=== PATIENT | male | born 1945 | race Caucasian/White ===

== ENCOUNTER 2019-06-02 16:50 | Inpatient (IN) | payer MEDICARE, MEDICAID, SELFPAY ==
--- NOTE | ~2019-06-02 | XR_ITS ---
EXAMINATION: XR chest 2V DATE: 06/02/2019 17:56 INDICATION: Weakness. Cerebral vascular accident. TECHNIQUE: Frontal and lateral views of the chest were obtained on 3 radiographs. COMPARISON: None. FINDINGS: There is mild atelectasis in the lower lung zones. No pleural effusion or pneumothorax. Car diomegaly is noted. There is mild chronic anterior wedging of a midthoracic vertebral body. There is an old healed fracture of left clavicle. IMPRESSION: 1. Mild atelectasis in the lower lung zones. 2. Cardiomegaly. Reviewed, dictated and finalized at location A.
--- NOTE | ~2019-06-02 | US_ITS ---
EXAMINATION: US carotid duplex BI DATE: 06/03/2019 15:12 INDICATION: Carotid stenosis. Problems with speech. Facial weakness. TECHNIQUE: Grayscale, color Doppler, and pulsed Doppler images of the cervical carotid arteries were obtained. The degree of vessel stenosis is placed in one of the following categories: normal, <50%, 5 0-69%, >=70% but less than near-occlusion, near-occlusion, or total occlusion. Note that percent sten osis relative to normal distal artery lumen diameter is indirectly measured from velocity measurement s as described by Ortiz, et al. Radiology 2003; 229:340-346. Notes: Normal: Peak systolic velocity <125 centimeters/sec and no plaque <50%. Peak systolic velocity <125 ( EDV <40; ICA/CCA PSV ratio <2.0; used these factors only a tandem lesions or low cardiac output or co ntralateral disease) 50-69 %: PSV 125-230 (EDV 40-100; ratio 2-4) >= 70% but less than near occlusion: PSV greater than 230 (EDV > 100; ratio> 4.0) Near Occlusion: PSV that is variable; markedly narrowed lumen Occlusion: Absent flow on color/spectral Doppler and no lumen on richardson scale. COMPARISON: None. FINDINGS: RIGHT: The right common carotid artery (CCA) peak systolic velocity (PSV) is 40 cm/s. The right internal car otid artery (ICA) PSV is 139 cm/s. The right ICA end-diastolic velocity (EDV) is 35 cm/s. The right I CA/CCA PSV ratio is 3.4. The external carotid artery (ECA) PSV is 54 cm/s. There is antegrade flow in the right vertebral artery. LEFT: The left CCA PSV is 59 cm/s. The left ICA PSV is 124 cm/s. The left ICA EDV is 20 cm/s. The left ICA/ CCA PSV ratio is 2.1. The ECA PSV is 142 cm/s. There is antegrade flow in the left vertebral artery. IMPRESSION: 1. 50-69% stenosis in the right internal carotid artery by sonographic criteria. 2. Less than 50% stenosis in the left internal carotid artery by sonographic criteria. Reviewed, dictated and finalized at location A. IMPRESSION: 1. 50-69% stenosis in the right internal carotid artery by sonographic criteria . 2. Less than 50% stenosis in the left internal carotid artery by sonographic cr iteria.
--- NOTE | ~2019-06-02 | CT_ITS ---
EXAMINATION: CT brain wo con DATE: 06/02/2019 17:03 INDICATION: Slurred speech. Cerebrovascular accident. TECHNIQUE: Computed tomography (CT) of the head was performed without intravenous contrast. The mA wa s adjusted according to patient size. Iterative reconstruction technique was employed. The dose-lengt h product was 605.33 mGy-cm. COMPARISON: None FINDINGS: There is old infarct involving the right internal capsule. There is an old infarct in the r ight temporal occipital region in the expected distribution of right posterior cerebral artery. There is no intracranial hemorrhage, acute infarction, or abnormal intracranial mass lesion. The ventricle s are normal in size. There is mild mucosal thickening in the paranasal sinuses. There are bilateral mastoid effusions. The orbits are normal. IMPRESSION: 1. Old infarcts involving the right internal capsule and right temporal occipital region. I called th is result to Dr. Cat on 06/02/19 at 17:06. Reviewed, dictated and finalized at location A. IMPRESSION: 1. Old infarcts involving the right internal capsule and right temporal occipit al region. I called this result to Dr. Cat on 06/02/19 at 17:06.
--- NOTE | ~2019-06-02 | US_ITS ---
EXAMINATION: US soft tissue LE LT DATE: 06/04/2019 12:36 INDICATION: Subcutaneous mass TECHNIQUE: Multiple grayscale and Doppler ultrasound images of the region of concern at the lateral l eft thigh were obtained. COMPARISON: None FINDINGS: The palpable abnormality of concern corresponds to a 2.7 x 1.7 x 1.1 cm heterogeneously hypoechoic cy stic lesion with relatively well-defined thin peripheral wall hypoechoic cystic lesion centered in th e subcutaneous fat with posterior acoustic enhancement. No evident internal flow on color Doppler. Th ere is a subtle hypoechoic tract extending from the lesion to the skin surface which favors an epider moid cyst. IMPRESSION: 1. 2.7 x 1.7 x 1.1 cm subcutaneous complex cystic lesion most likely representing an epidermoid cyst with differential including hematoma or abscess in the appropriate clinical settings. Reviewed, dictated and finalized at location A. IMPRESSION: 1. 2.7 x 1.7 x 1.1 cm subcutaneous complex cystic lesion most likely representi ng an epidermoid cyst with differential including hematoma or abscess in the ap propriate clinical settings.
--- NOTE | ~2019-06-02 | MR_ITS ---
EXAMINATION: MR brain/brain stem wo con DATE: 06/04/2019 14:54 INDICATION: Speech deficit. Left hemiparesis. TECHNIQUE: Magnetic resonance imaging (MRI) of the brain and brainstem was performed without intraven ous contrast. Sequences included sagittal and axial T1-weighted FSE, axial diffusion-weighted FS EPI, axial T2*-weighted GRE, axial T2-weighted FLAIR Propeller, and axial T2-weighted Propeller. Apparent diffusion coefficient (ADC) maps were created. COMPARISON: Head CT 06/02/2019 FINDINGS: There is an acute infarct predominantly involving the right temporal parietal region with a djacent cortical involvement of the right occipital lobe. There are small acute infarcts involving th e right insula and right frontoparietal region. There is an old infarct involving the right temporal occipital region expected distribution of right posterior cerebral artery. There is an old infarct in volving the right internal capsule. There are scattered areas of nonspecific increased T2-weighted si gnal intensity in the cerebral white matter, which is within normal limits for the patient's age. The re is no intracranial hemorrhage or abnormal mass lesion. The ventricles are normal in size. There is mild mucosal thickening in the ethmoid sinuses. There are bilateral mastoid effusions. The orbits ar e normal. IMPRESSION: 1. Acute infarcts involving the right temporal parietal occipital region, right insula, and right fro ntoparietal region in the expected distribution of right middle cerebral artery. 2. Old infarcts involving the right internal capsule and right temporal occipital region. Reviewed, dictated and finalized at location A. IMPRESSION: 1. Acute infarcts involving the right temporal parietal occipital region, right insula, and right frontoparietal region in the expected distribution of right middle cerebral artery. 2. Old infarcts involving the right internal capsule and right temporal occipit al region.
[2019-06-02 17:04] VITALS: O2SAT 97
--- NOTE | 2019-06-02 17:05 | ECG_ITS ---
Measurements Intervals Welch Rate: 85 P: IL: 0 QRS: 33 QRSD: 101 T: 28 QT: 361 QTc: 432 Interpretive Statements ATRIAL FIBRILLATION LOW QRS VOLTAGE IN LIMB LEADS BORDERLINE ST ABNORMALITY- ANTEROLAT/INF LEADS BASELINE ARTIFACT- I, II, III, AVR, AVL, AVF ABNORMAL ECG Electronically Signed On 06-04-2019 15:27:19 CDT by Alex Jose D.O.
--- NOTE | 2019-06-02 17:12 | ED.NEUROSD ---
HPI - Neuro Symptoms/Deficit General Chief Complaint: Suspected CVA Stated Complaint: ?CVA Time Seen by Provider: 06/02/19 17:12 Source: RN notes reviewed Mode of arrival: EMS Limitations: clinical condition History of Present Illness HPI Narrative: Pt is a 73 y/o male who presents to the ED, via EMS, from [facility], secondary to a possible CVA. Per nurse, pt was brought to the ED d/t pt having slurred speech and lt sided weakness. EMS states that the [facility] staff noted his slurred speech and lt sided weakness around 1600 and by the time EMS got there his Sx had resolved. Per CT findings, pt has a H/O of a previous CVA. There is no one that can verify pt's baseline condition. A complete HPI is limited d/t pt being a poor historian. Onset (ago): hour(s) (1) Last Observed Normal: 16:00 Timing confirmed by: caregiver Location: speech, left arm and left leg Quality: weak Associated symptoms: denies other symptoms Related Data Home Medications Medication Instructions Recorded Confirmed Adult Low Dose Aspirin 81 mg PO 06/02/19 atorvastatin 20 mg PO 06/02/19 calcium carbonate 200 mg PO 06/02/19 clopidogrel 75 mg PO 06/02/19 digoxin 125 mcg PO DAILY 06/02/19 06/02/19 diltiazem HCl PO 06/02/19 haloperidol 06/02/19 hydrocodone-acetaminophen 5 - 325 mg 06/02/19 melatonin 3 mg 06/02/19 nicotine 1 patch TRANSDERMAL DAILY 06/02/19 06/02/19 pantoprazole 40 mg 06/02/19 thiamine HCl (vitamin B1) [Vitamin 100 mg PO DAILY 06/02/19 06/02/19 B-1] trazodone 50 mg 06/02/19 Allergies Allergy/AdvReac Type Severity Reaction Status Date / Time erythromycin base Allergy Unknown Verified 06/02/19 17:42 Review of Systems Review of Systems: ROS unobtainable: other (Unobtainable d/t pt being a poor historian) PMFSH Past Medical History Medical History (Updated 06/02/19 @ 19:12 by Harry Cat MD) CVA (cerebral vascular accident) Social History Social History (Updated 06/02/19 @ 17:38 by Brady Lynn) Living arrangements: long term Comments A complete PMFSH is limited due to the lack of records and pt never being in this hospital in the past. Exam Const: General: no acute distress, well developed and ill appearing chronically Nutritional Appearance: well nourished Orientation/consciousness: patient oriented x3 (alert) and Other orientation findings (Alert) Limitations: no limitations HENMT: Head: normocephalic and atraumatic Ears: external ears normal General nose exam: No nasal discharge present and no epistaxis Face and sinus: face symmetric Mouth: Yes lip normal, Yes tongue normal and Yes moist mucous membranes Throat: other (No exudate, no erythema) Eyes: Visual Wooten: abnormal by confrontation (questionable lt sided visual field defect/neglect) Conjunctivae: conjunctivae normal Sclera: sclerae normal Pupils: Equal, round and reactive pupils present EOM: EOMs intact bilaterally Neck: Neck: full ROM, no lymphadenopathy and supple Thyroid: thyroid normal Chest: Chest palpation & inspection: no tenderness Resp: Effort & Inspection: normal respiratory effort Auscultation: clear to auscultation bilaterally, no rales, no rhonchi, no wheezes and other (breath sounds equal) Cardio: Rate: regular rate Rhythm: regular rhythm Heart sounds: no gallops and no murmurs GI: Inspection: non-distended GI Palp: No abdominal tenderness and Yes Soft to palpation Auscultation: other (bowel sounds present) : General: Yes no CVA tenderness Back/Spine/Pelvis: Back: no CVA tenderness Thoracic/Lumbar Spine: thoracic and lumbar spine normal to inspection Skin: General skin exam: normal color and no rashes or lesions noted Neuro: General: patient oriented x3 (alert), moves all extremities and no focal motor deficits Cranial nerves: Yes facial symmetry Speech: normal speech Motor exam (neuro): Pronator motor function not present, Motor abnormalities not present and Other motor observations present (question
[2019-06-02 17:26] VITALS: BP 147/69; PULSE 71; RESP 16; TEMP 37.1; O2SAT 100
[2019-06-02 17:33] LABS: Glucose Point of Care 108 (65-105)
[2019-06-02 18:35] LABS: Basophils Absolute Auto 0.1 K/mm3 (0.0-0.1); Basophils Percent Auto 1.2 % (0.2-1.2); Eosinophils Absolute Auto 0.3 K/mm3 (0-0.3); Eosinophils Percent Auto 2.5 % (0-4.4); Hematocrit 37.2 % (42.0-52.0); Hemoglobin 10.5 g/dL (14.0-18.0); Immature Granulocyte Absolute 0.06 K/mm3 (0.00-0.031); Immature Granulocyte Percent A 0.6 % (0-0.5); Lymphocytes Absolute Auto 1.52 K/mm3 (0.9-3.2); Lymphocytes Percent Auto 14.6 % (18.3-44.2); Mean Corpuscular HGB Conc 28.2 g/dl (32-36); Mean Corpuscular Hemoglobin 22.9 pg (26-34); Monocytes Absolute Auto 1.5 K/mm3 (0.1-0.6); Monocytes Percent Auto 14.2 % (2.6-8.5); Neutrophils Percent Auto 66.9 % (45.5-73.1); Platelet Count Result 350 k/mm3 (150-375); Red Blood Count 4.59 M/mm3 (4.6-6.20); Red Cell Distribution Width 19.7 % (11.5-14.5); White Blood Count 10.4 K/mm3 (4.5-10.0)
[2019-06-02 18:37] LABS: Add Urine Microscopic? NO; Appearance Urine Clear (Clear); Bilirubin Urine Negative (Negative); Blood Urine Negative (Negative); Color Urine Straw (Yellow); Glucose Urine UA Negative (Negative); Ketones Urine Negative (Negative); Leukocyte Esterase Ur Negative LEU/UL (Negative); Nitrate Urine Negative (Negative); Protein Urine Negative (Negative); Urobilinogen Urine Negative mg/dL (<2.0)
[2019-06-02 18:42] LABS: Prothrombin Time 12.4 Seconds (11.1-14.7)
[2019-06-02 18:44] LABS: Blood Urea Nitrogen 11 mg/dL (9-20); Calcium 8.8 mg/dL (8.4-10.2); Carbon Dioxide 29 mmol/L (22-30); Chloride 102 mmol/L (98-107); Estimated CRCL calculation 77 ml/min; Estimated Glomerular Filt Rate > 60; Glucose 97 mg/dL (75-110); Potassium 4.3 mmol/L (3.4-5.0); Sodium 135 mmol/L (137-145)
[2019-06-02 19:17] VITALS: BP 134/86; PULSE 74; RESP 20; O2SAT 98
[2019-06-02 20:45] VITALS: BP 142/88; PULSE 79; RESP 16; O2SAT 99
[2019-06-02 20:55] VITALS: BP 155/85; PULSE 85; RESP 18; TEMP 36.5; O2SAT 100; BMI 25.5
[2019-06-02] MEDS: LACTATED RINGERS 1,000 ML 80 ML IV CONT (20:55)
--- NOTE | 2019-06-02 20:56 | ADMGEN ---
This patient, Zackary Domínguez, was admitted to [facility] Surg Room 306-01. Patient/family oriented to hospital policies and general routines including ID bracelet, bed and alarms, visiting hours, pain management, procedures, bathroom and other care routines, personal items, smoking policy, room service/diet, and visiting hours. Valuables list has been completed. Information on how to activate the Rapid Response Team has been discussed. Patient/Family are encouraged to report perceived risks to care and to ask questions if they do not understand what they are told or what they should do.
[2019-06-02 21:10] VITALS: PULSE 82
--- NOTE | 2019-06-02 21:30 | PM.IMHP ---
H&P: HPI History of Present Illness Chief complaint: Slurred speech and left-sided weakness. Narrative: Zackary Domínguez is a 73-year-old male smoker with history of alcoholism, atrial fibrillation, hypertension, and hyperlipidemia who presented to the emergency department earlier this evening via EMS from [facility] for evaluation of slurred speech and left-sided weakness. The patient is a fairly good historian, but at times seems to have difficulties getting out the words that he is trying to articulate. As such, his daughter provided some additional history, with the patient's permission. The patient lives in his own home, and apparently has been having recurrent falls over the past several months. More recently, he fell and broke his left hand and was seen at [facility]. He was subsequently transferred to [facility], for reasons unclear to the patient. Apparently there was concern that he may have had a stroke, however daughter and patient were both told that he did not have a stroke. He is on clopidogrel, however, for unknown reasons in brain CT done today showed old infarcts. He was sent to [facility] for rehab, and today staff noticed that his speech seems slurred and that his left side was weak. The patient himself did not think his left side was weak, but has noticed the slurred speech. Due to unclear history as to what transpired at [facility], he is being admitted for observation and possible further evaluation. Patient does note that he has been experiencing vertigo the last couple of months, leading to his falls. He denies auditory and visual changes. He has not noticed any focal weakness. No paresthesias. He is chronically in atrial fibrillation, but is not on long-term anticoagulation, presumably due to him being a fall risk. Review of Systems Review of Systems: Narrative: Twelve systems were reviewed with pertinent positives and negatives as per HPI. No fever, chills, or sweats. He denies recent cold and flu symptoms. No exertional chest pain or shortness of breath. Denies nausea, vomiting, and diarrhea. No dysphagia. he has a history of DTs with prior hospitalizations, but did fine during his most recent hospitalization at [facility]. No tremors, sweats, or hallucinations. Patient states he has cut back on drinking in the last several months. No history of DVT. Except as documented, all other systems were reviewed and are negative. [facility] Past Medical History Medical History (Updated 06/02/19 @ 23:01 by Estela Hawthorne PA-C) Atrial fibrillation COPD (chronic obstructive pulmonary disease) CVA (cerebral vascular accident) Old infarcts involving the right internal capsule and right temporal occipital region, noted on brain CT 06/02/2019. History of alcohol abuse History of colon polyps Hypertension Peripheral arterial disease Tobacco dependence Surgical History Surgical History (Updated 06/02/19 @ 22:47 by Estela Hawthorne PA-C) History of appendectomy History of sinus surgery History of vascular surgery Bilateral lower extremity popliteal bypass. Family History Family History (Updated 06/02/19 @ 22:47 by Estela Hawthorne PA-C) Father , of old age. No problems noted. Mother Acute myocardial infarction from [place] in early 50s. Sibling Carcinoma of colon Social History Social History (Updated 06/02/19 @ 22:49 by Estela Hawthorne PA-C) Social History: The patient lives in his own home in [place]. 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 He designates his son Jose as his surrogate decision maker. He is listed as a full code. He has smoked at least 1 pack of cigarettes per day for the past 50 years. He has drank a 6 pack of beer daily since his 30s, but has cut back to 1 to 2 beers a day. Smoking packs per day: 1 Smoking cigarettes per day: 20.0 Years smoked: 50 Smoking pack-years: 50.00 Additional smoking assessment comme
[2019-06-03] VITALS (10 sets, daily range): BP systolic 125–143; BP diastolic 57–92; PULSE 74–102; RESP 16–18; TEMP 36.6–37.1; O2SAT 100
--- NOTE | 2019-06-03 | ECHO_ITS ---
Patient Info Name: Zackary Domínguez Age: 73 years : 1945 Gender: Male Ht: 72 in Wt: 188 lbs BSA: 2.09 m2 HR: 82 bpm BP: 125 / 62 mmHg Heart Rhythm: Atrial Fibrillation Technical Quality: Good Exam Date: 06/03/2019 3:35 PM Exam Location: [facility] Patient Status: Inpatient Admit Date: 06/02/2019 Staff Ordering Physician: Ramya Ngo PA-C [employer] Specialist: Jeff Hewitt RDCS Attending Provider: Ramya Ngo PA-C Referring Physician: Huber STARR; Exam Type: CA echo doppler color flow Study Info Indications 436.0 - CVA Complete two-dimensional, color flow and Doppler transthoracic echocardiogram is performed. Strain analysis performed. History/Risk Factors CVA; Afib, COPD, EtOH, HTN. Summary 1. Left ventricular chamber dimension is mildly enlarged. 2. Left ventricular systolic function is mildly reduced, estimated at 40-45%. 3. The posterior wall is akinetic. 4. Left atrial chamber dimension is moderately enlarged. 5. Small amounts of Mitral, Aortic and Tricuspid regurgitation. Left Ventricle Left ventricular chamber dimension is mildly enlarged. Left ventricular systolic function is mildly reduced, estimated at 40-45%. The posterior wall is akinetic. Right Ventricle Right ventricular chamber dimension is normal. Left Atria Left atrial chamber dimension is moderately enlarged. Right Atria Right atrial chamber dimension is normal. Aortic Valve The aortic valve is trileaflet. There is mild aortic valve sclerosis. There is trace aortic valve regurgitation. Pulmonic Valve The pulmonic valve is not well visualized. Mitral Valve The mitral valve has normal leaflets and calcified annulus. There is mild mitral valve regurgitation. Tricuspid Valve The tricuspid valve leaflets are normal. There is trace tricuspid valve regurgitation. Pericardium/Pleural The pericardium appears normal. Aorta The aortic root size at the sinus of Valsalva is normal. Left Ventricular Outflow Tract Name Value Normal LVOT 2D LVOT Diameter 2.2 cm LVOT Doppler LVOT Peak Gradient 7 mmHg LVOT Mean Gradient 4 mmHg LVOT VTI 22 cm LVOT VTI/AV VTI Ratio 0.8 LVOT Stroke Volume 84 ml LVOT CO 6.8 l/min LVOT CI 3.2 l/min/m2 Mitral Valve Name Value Normal MV Doppler MV Decel Kendall 749 cm/s2 MV PHT 36 ms MV Area (PHT) 6.2 cm2 4.0-5.0 MV Diastolic Function MV E Peak Velocity 92 cm/s MV A Peak Veloc
[2019-06-03] MEDS: MELATONIN 3 MG TABLET PO ×2 (00:17→20:32)
[2019-06-03] MEDS: TRAZODONE HCL 50 MG TABLET PO ×2 (00:17→20:32)
[2019-06-03] MEDS: ATORVASTATIN 20 MG TABLET PO ×2 (00:17→20:32)
[2019-06-03 06:13] LABS: Hematocrit 35.2 % (42.0-52.0); Hemoglobin 10.1 g/dL (14.0-18.0); Mean Corpuscular HGB Conc 28.7 g/dl (32-36); Mean Corpuscular Volume 80.2 fl (80-100); Mean Platelet Volume 9.4 fl (7.4-10.4); Platelet Count Result 332 k/mm3 (150-375); Red Blood Count 4.39 M/mm3 (4.6-6.20); Red Cell Distribution Width 19.5 % (11.5-14.5); White Blood Count 8.1 K/mm3 (4.5-10.0)
[2019-06-03 06:39] LABS: Alanine Aminotransferase 13 U/L (4-50); Albumin Level 3.6 g/dL (3.5-5.1); Alkaline Phosphatase 71 U/L (38-126); Aspartate Amino Transferase 19 U/L (17-59); Bilirubin,Total 0.3 mg/dL (0.2-1.3); Blood Urea Nitrogen 12 mg/dL (9-20); Calcium 8.7 mg/dL (8.4-10.2); Carbon Dioxide 27 mmol/L (22-30); Chloride 105 mmol/L (98-107); Estimated CRCL calculation 69 ml/min; Estimated Glomerular Filt Rate > 60; Glucose 91 mg/dL (75-110); Magnesium 2.1 mg/dL (1.6-2.3); Phosphorus 4.8 mg/dL (2.5-4.5); Potassium 4.2 mmol/L (3.4-5.0); Sodium 138 mmol/L (137-145)
[2019-06-03 06:44] LABS: Digoxin 0.7 ng/mL (0.8-2.0)
--- NOTE | 2019-06-03 08:02 | PCOTNOTE ---
Patient adamantly refusing therapy this AM. stating that he will not participate telling therapist to get out of his room
[2019-06-03] MEDS: ASPIRIN 81 MG CHEWABLE TABLET PO (08:27)
[2019-06-03] MEDS: CLOPIDOGREL BISULFATE 75 MG TABLET PO (08:27)
[2019-06-03] MEDS: DIGOXIN TAB 125 MCG TABLET PO (08:28)
[2019-06-03] MEDS: THIAMINE HCL 100 MG TABLET PO (08:28)
[2019-06-03] MEDS: PANTOPRAZOLE 40 MG TABLET PO (08:28)
[2019-06-03 09:51] LABS: Folic Acid 14.8 ng/mL (2.76->20)
[2019-06-03] MEDS: LACTATED RINGERS 1,000 ML 80 ML IV CONT (11:54)
--- NOTE | 2019-06-03 12:01 | CONS_ITS ---
DATE OF CONSULTATION: 06/03/[address] Héctor Killian. HISTORY OF PRESENT ILLNESS: This 73-year-old right-handed male has been admitted to [facility] through the emergency room for the complaint of left-sided weakness with slurred speech. In addition to the history of: 1. Alcoholism. 2. Smoking. 3. Atrial fibrillation. 4. Hypertension. 5. Hyperlipidemia. He presented to the ER via EMS from [facility] for the complaints as mentioned above. Initially, he appeared to have some difficulties in getting out the words when he was examined by the initial physician. He has been experiencing recurrent falls over the last several months, most recently fell and broke his left hand, was seen at [facility] and was subsequently transferred to [facility] for unclear reason. There was a concern regarding the possibility of new stroke, though it was ruled out. He has been on clopidogrel and his recent CT scan today revealed a stroke. His speech was somewhat slurred. He was weaker on the left side. He was admitted for further evaluation and observation. MEDICAL HISTORY: In the past, he has ongoing history of: 1. Atrial fibrillation. 2. COPD. 3. CVA. 4. Alcohol abuse. 5. Colon polyps. 6. Hypertension. 7. Peripheral arterial disease. 8. Tobacco dependence. SURGICAL HISTORY: He has history of appendectomy, sinus surgery, and vascular surgery. SOCIAL HISTORY: He carries the full code status. He smokes 1 pack of cigarettes per day for the last 50 years, drinking 6 pack of beer daily in his 30s, but now cutting back to 1-2 beers a day. MEDICATIONS: At the time of admission to the hospital, he was takin. Aspirin 81 mg daily. 2. Atorvastatin 20 mg h.s. 3. Calcium carbonate 200 mg q.i.d. 4. Clopidogrel 75 mg daily. 5. Digoxin 125 mcg daily. 6. Diltiazem 120 mg daily. 7. Melatonin 3 mg h.s. 8. Pantoprazole 40 mg daily. 9. Thiamine 100 mg daily. 10. Trazodone 50 mg at night. ALLERGIES: HE IS REPORTEDLY ALLERGIC TO ERYTHROMYCIN. PHYSICAL EXAMINATION: VITAL SIGNS: Evaluation up until now revealed him to be afebrile, normotensive with pulse ox of 100. GENERAL: Examination revealed him to be awake, alert, cooperative, in no obvious acute distress. HEENT: Head is normocephalic with no cranial bruits. Ears, nose, throat examination normal. NECK: Supple with no cervical bruits. No thyromegaly. No lymphadenopathy. HEART: Irregular. LUNGS: Clear to auscultation with no crepitation. SKIN: Normal. EXTREMITIES: Normal. NEUROLOGICAL: Examination revealed him to be awake, alert, and oriented x4. Pupils are round, regular. Wooten of vision full. Extraocular movements full. Face symmetrical. Tongue midline. Motor examination revealed him to have some difficulties performing [id number]-muil-[id number]-finger. Reflexes were symmetrical, plantars were downgoing and there was no evidence of gross cerebellar deficit. LABORATORY DATA: Evaluation up until now documented a normal CBC, normal basic metabolic panel, normal UA. CT scan of his head documented old infarct in the right internal capsule, right temporal occipital region with mild atelectasis in the left lower lung zone on x-ray of chest. The patient has been started on aspirin, atorvastatin, clopidogrel, digoxin, diltiazem, melatonin, and pantoprazole in addition to thiamine and trazodone. Treatment will be continued as such. Further adjustment will be made accordingly. ERIC MOYA M.D. COMPUTER PATTERNMAKER COMPUTER PATTERNMAKER D I MT: Lila
--- NOTE | 2019-06-03 13:07 | PCSTNOTE ---
Two attempts to see patient this date for bedside swallow eval. At approximately 0945 patient refused oral trials and argued with this therapist as to why testing was necessary. He then requested to use the urinal. Second attempt at 1300, at which time patient was gone for testing.
--- NOTE | 2019-06-03 16:14 | PM.IMPN ---
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 Records from [facility] were reviewed and the pt had a CT brain wo contrast there which revealed old infarcts without further workup performed. The pt does continue to exhibit difficulty finding words at times. He has no focal deficits appreciated on physical exam today. Dr. Frederick has been consulted. Recommendations are greatly appreciated. Will obtain carotid doppler US and echo Continue neurologic checks Q4HR MRI pending Continue aspirin, plavix, and atorvastatin (2) Atrial fibrillation: Code(s): I48.91 - Unspecified atrial fibrillation Status: Acute Assessment and Plan: Continue digoxin and cardizem Not on long-term anticoagulation at this time. Per Lalita, the patient's daughter, the pt has a hx of anemia requiring 2-3 units PRBC at [place] 3.5-4 weeks ago. Will request records. He had an EGD for evaluation of the etiology of his blood loss but did not have a colonoscopy yet due to his recent fall. The patient's family is unsure if he was ever on anticoagulation. Hx is unclear with my discussion with the pt. I will call to discuss this with his PCP. (3) Hypertension: Code(s): I10 - Essential (primary) hypertension Status: Acute Assessment and Plan: Blood pressures were reviewed and are stable. Continue cardizem and monitor daily (4) Tobacco dependence: Code(s): F17.200 - Nicotine dependence, unspecified, uncomplicated Status: Acute Assessment and Plan: Patient declines need for nicotine patch Discussed the importance of smoking cessation with the pt at length today (5) History of alcohol abuse: Code(s): F10.11 - Alcohol abuse, in remission Status: Acute Assessment and Plan: The pt reports that he has decreased his alcohol intake over the past two months. He has not consumed any alcohol since his recent hospitalization and since he was discharged to [facility]. He has a hx of DTs during a hospital stay 2-3 years ago but reports that he has not had any withdrawal symptoms recently and did not have any withdrawal sx at his recent stay at [facility]. Continue thiamine supplementation (6) Peripheral arterial disease: Code(s): I73.9 - Peripheral vascular disease, unspecified Status: Acute Assessment and Plan: Pt's daughter, Lalita, reports that the pt has a hx of PAD s/p stenting approximately 2 years ago. (7) Hematoma: Code(s): T14.8XXA - Other injury of unspecified body region, initial encounter Status: Acute Assessment and Plan: Pt has subcutaneous mass to left lateral thigh. It is tender to palpation. Will obtain LLE soft-tissue US for further evaluation. Subjective Date/time seen: 06/03/19 14:30 Interval history: Mr. Domínguez was seen and examined at bedside. He has no concerns today. He reports mild discomfort at his left thigh. He slept fine and is tolerating his diet well. He denies lateralizing weakness today. He denies fever, chills, cough, SOB, and chest pain. Review of Systems Review of Systems: All systems reviewed & are unremarkable except as noted in HPI and below Exam Narrative: Exam Narrative: General: Well-developed and well-nourished 73 y.o. male lying in bed. He is cooperative and in no acute distress. HEENT: Normocephalic and atraumatic. Conjunctivae and lids normal. PERRL. EOMI. Mucous membranes moist. Posterior pharynx without erythema or exudate. Neck: Supple. No lymphadenopathy or masses. Cardiac: Irregularly irregular rhythm. Rate normal. S1 and S2 normal. No murmur appreciated. No JVD. No carotid bruits. Lungs: Normal
[2019-06-04] VITALS (10 sets, daily range): BP systolic 100–115; BP diastolic 55–73; PULSE 60–95; RESP 16–18; TEMP 36.3–36.9; O2SAT 98–100
[2019-06-04 06:19] LABS: Hematocrit 34.4 % (42.0-52.0); Mean Corpuscular HGB Conc 29.1 g/dl (32-36); Mean Corpuscular Hemoglobin 23.2 pg (26-34); Mean Corpuscular Volume 79.8 fl (80-100); Mean Platelet Volume 9.4 fl (7.4-10.4); Platelet Count Result 336 k/mm3 (150-375); Red Blood Count 4.31 M/mm3 (4.6-6.20); Red Cell Distribution Width 19.4 % (11.5-14.5)
[2019-06-04 06:33] LABS: Alanine Aminotransferase 13 U/L (4-50); Albumin Level 3.5 g/dL (3.5-5.1); Alkaline Phosphatase 75 U/L (38-126); Aspartate Amino Transferase 18 U/L (17-59); Bilirubin,Total 0.3 mg/dL (0.2-1.3); Blood Urea Nitrogen 10 mg/dL (9-20); Calcium 8.8 mg/dL (8.4-10.2); Carbon Dioxide 27 mmol/L (22-30); Chloride 103 mmol/L (98-107); Estimated CRCL calculation 88 ml/min; Estimated Glomerular Filt Rate > 60; Glucose 98 mg/dL (75-110); Phosphorus 4.4 mg/dL (2.5-4.5); Potassium 4.2 mmol/L (3.4-5.0); Sodium 134 mmol/L (137-145)
[2019-06-04] MEDS: THIAMINE HCL 100 MG TABLET PO (09:10)
[2019-06-04] MEDS: DIGOXIN TAB 125 MCG TABLET PO (09:10)
[2019-06-04] MEDS: CLOPIDOGREL BISULFATE 75 MG TABLET PO (09:10)
[2019-06-04] MEDS: PANTOPRAZOLE 40 MG TABLET PO (09:10)
[2019-06-04] MEDS: ASPIRIN 81 MG CHEWABLE TABLET PO (09:11)
--- NOTE | 2019-06-04 09:36 | PCSTNOTE ---
Please refer to the Bedside Swallow Evaluation in the EMR.
--- NOTE | 2019-06-04 10:16 | WPDNEUROPN ---
Progress Note: A&P Assessment and Plan (1) Hematoma: Code(s): T14.8XXA - Other injury of unspecified body region, initial encounter Status: Acute (2) Peripheral arterial disease: Code(s): I73.9 - Peripheral vascular disease, unspecified Status: Acute (3) Hypertension: Code(s): I10 - Essential (primary) hypertension Status: Acute (4) Atrial fibrillation: Code(s): I48.91 - Unspecified atrial fibrillation Status: Acute (5) Neurological symptoms: Code(s): R29.90 - Unspecified symptoms and signs involving the nervous system Status: Acute (6) History of alcohol abuse: Code(s): F10.11 - Alcohol abuse, in remission Status: Acute (7) Tobacco dependence: Code(s): F17.200 - Nicotine dependence, unspecified, uncomplicated Status: Acute (8) Weakness: Code(s): R53.1 - Weakness Status: Acute (9) Cerebrovascular accident, old: Code(s): Z86.73 - Personal history of transient ischemic attack (TIA), and cerebral infarction without residual deficits Status: Acute Additional Plan stable Review of Systems Review of Systems: All systems reviewed & are unremarkable except as noted in HPI and below Exam Const: General: cooperative and no acute distress Nutritional Appearance: average body habitus Orientation/consciousness: oriented to person and oriented to place Eyes: General: appearance normal, both eyes and all related structures Neck: Neck: full ROM and no lymphadenopathy Resp: Effort & Inspection: able to speak in complete sentences Cardio: Rhythm: abnormal rhythm GI: Auscultation: normal bowel sounds Skin: General skin exam: no rashes or lesions noted Neuro: General: oriented to person and oriented to place Cranial nerves: Yes Equal, round and reactive pupils present, Yes Nystagmus not present, Yes Midline tongue present, Yes Symmetric palate elevation present and Yes Ability to bilaterally rotate head present Cognition (Neuro): normal cognition Speech: normal speech Gait exam (Neuro): Unable to assess gait Motor exam (neuro): 5/5 motor strength present throughout (left sided subtle weekness) Psych: Speech and movement: Normal speech and movement present Affect: normal affect Attitude: cooperative Thought content: Yes Normal thought content present Insight: Fair insight present (Psych) Judgement: Fair judgement present (Psych) Objective Data Vital Signs Vital Signs: Vital Signs - 24 hr 06/03/19 12:00 06/03/19 14:26 06/03/19 16:00 Temperature 37.0 C Pulse Rate 97 79 85 Respiratory Rate 16 Blood Pressure 125/62 Pulse Oximetry 100 06/03/19 20:00 06/03/19 21:26 06/04/19 00:00 Temperature 37.1 C Pulse Rate 90 75 88 Respiratory Rate 16 Blood Pressure 125/57 L Pulse Oximetry 100 06/04/19 04:00 06/04/19 06:00 06/04/19 09:10 Temperature 36.3 C L Pulse Rate 60 95 95 Respiratory Rate 16 Blood Pressure 114/73 Pulse Oximetry 98 Intake/Output Intake/Output: Intake & Output 06/01/19 06/02/19 06/03/19 06/04/19 23:59 23:59 23:59 23:59 Intake Total 3641 940 Output Total 2050 1500 Balance 1591 -560 Meds/Results Medications: Active Medications Generic Name Dose Route Start Last Admin Trade Name Freq PRN Reason Stop Dose Admin Hydrocodone Bitart/Acetaminophen 1 tab 06/02/19 23:09 06/03/19 00:18 [place] 5-325 Mg PO 1 tab Q4H PRN Administration Pain rated 4-6 Hydrocodone Bitart/Acetaminophen 2 tab 06/03/19 00:56 06/04/19 09:06 [place] 5-325 Mg PO 2 tab Q4H PRN Administration Pain Rated 7-10 Aspirin 81 mg 06/03/19 08:00 06/04/19 09:11 Aspirin Chewable PO 81 mg DAILY@0800 MERRITT Administration Atorvastatin Calcium 20 mg 06/02/19 23:15 06/03/19 20:32 Lipitor PO 20 mg HS MERRITT Administration Calcium Carbonate 200 mg 06/02/19 23:09 Tums PO QID PRN Heartburn Clopidogrel Bisulfate 75 mg 03
--- NOTE | 2019-06-04 11:35 | PCOTNOTE ---
Attempted to see Patient for OT treatment session. Patient refusing to participate in any activities at this time. Patient being asked to having some testing performed, refusing, stating he just wants to go back to the shelter. Patient doesn't understand why he is still here. Patients doctor was present trying to explain the importance of the services here at the hospital, patient very argumentative. Patient wants to leave today.
--- NOTE | 2019-06-04 13:44 | PM.IMPN ---
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 Records from [facility] were reviewed and the pt had a CT brain wo contrast there which revealed old infarcts without further workup performed. The pt continues to have intermittent expressive aphasia and some difficulty pronouncing certain words. Carotid doppler with <50% stenosis in the left ICA and 50-69% stenosis in the right ICA. Echo with reduced systolic function of 40-45%. We received echo results today from [facility] and his EF was unchanged from that study several weeks ago. Dr. Frederick has been consulted. Recommendations are greatly appreciated. Discussed with Dr. Frederick and we will continue ASA, plavix, and atorvastatin. Pt has refused CTA head and neck because he does not want contrast exposure. He has no know contrast allergy but reports that contrast caused severe pain in the past. I discussed this with his children who do not know of a specific allergy but are in agreement to respect his wishes and avoid CTA head and neck. Continue neurologic checks Q4HR The MRI is still pending because we needed to obtain information about his peripheral stents. We have obtained this info form [facility] so we can now proceed. Continue aspirin, plavix, and atorvastatin Will place consult for speech therapy. Recommend speech therapy at discharge. Pt will need to continue PT/OT at discharge. (2) Atrial fibrillation: Code(s): I48.91 - Unspecified atrial fibrillation Status: Acute Assessment and Plan: Telemetry reviewed. Rate is generally well-controlled with occasional episodes of tachycardia (110-120s). He is in persistent atrial fibrillation. He was on digoxin and cardizem prior to admission. His echo reveals reduced EF of 40-45%. Will consult cardiology to discuss management of his atrial fibrillation. Recommendations are greatly appreciated. The pt is not on long-term anticoagulation. I called to speak with Dr. Wharton, his PCP, who stated that he was on xarelto in 2013 but has not been on an anticoagulant since 2013. He was on ASA and plavix until 04/29 when he was found to have profound anemia with Hb 6.9. He required 2-3 units PRBC. He underwent EGD but has not had his colonoscopy yet. He is adamantly refusing colonoscopy. He denies melena or hematochezia but I talked with Dr. Wharton who suspects that his anemia was due to GI blood loss. After transfusion, he experienced a fall 3/ and was hospitalized at an outside facility. I believe ASA and plavix were resumed at that time due to concern for possible TIA/CVA. He also has a known hx of alcohol use but has been abstinent since he has been in the prison. His HAS-BLED score is 6. His [id number] risk is 6. I had a long discussion with his daughter, Lalita, and Son, Ramos. I discussed that he is at risk for recurrent strokes with his atrial fibrillation but he is also at high risk for bleeding. I discussed that he is on plavix and ASA at this time and his Hb & Hct seem to be relatively stable. They may consider anticoagulation in the future but I would recommend he have the colonoscopy first. He needs to have his CBC repeated and monitor H&H to ensure it will remain stable on plavix and ASA. (3) Hypertension: Code(s): I10 - Essential (primary) hypertension Status: Acute Assessment and Plan: Blood pressures were reviewed and are stable. Continue cardizem and monitor daily Will await cardiology recommendations regarding cardizem (4) Tobacco dependence: Code(s): F17.200 - Nicotine dependence, unspecified, uncomplicated Status: Acute Assessment and Plan: Patient declines need
--- NOTE | 2019-06-04 15:18 | PCPTNOTE ---
Patient refused treatment.
[2019-06-04] MEDS: TRAZODONE HCL 50 MG TABLET PO (20:18)
[2019-06-04] MEDS: MELATONIN 3 MG TABLET PO (20:18)
[2019-06-04] MEDS: ATORVASTATIN 20 MG TABLET PO (20:18)
[2019-06-05] VITALS (10 sets, daily range): BP systolic 116–148; BP diastolic 56–83; PULSE 73–98; RESP 18–20; TEMP 36.8–37.4; O2SAT 96–98
[2019-06-05 05:59] LABS: Hematocrit 35.9 % (42.0-52.0); Hemoglobin 10.1 g/dL (14.0-18.0); Mean Corpuscular HGB Conc 28.1 g/dl (32-36); Mean Corpuscular Hemoglobin 22.7 pg (26-34); Mean Corpuscular Volume 80.9 fl (80-100); Mean Platelet Volume 9.7 fl (7.4-10.4); Platelet Count Result 363 k/mm3 (150-375); Red Blood Count 4.44 M/mm3 (4.6-6.20); Red Cell Distribution Width 19.4 % (11.5-14.5)
[2019-06-05 06:05] LABS: Blood Urea Nitrogen 12 mg/dL (9-20); Calcium 8.4 mg/dL (8.4-10.2); Carbon Dioxide 26 mmol/L (22-30); Chloride 102 mmol/L (98-107); Estimated CRCL calculation 88 ml/min; Estimated Glomerular Filt Rate > 60; Glucose 100 mg/dL (75-110); Potassium 3.9 mmol/L (3.4-5.0); Sodium 134 mmol/L (137-145)
--- NOTE | 2019-06-05 07:10 | PCOTNOTE ---
Attempted to see Patient at this time. Patient refused to participate, I want to leave, go back to the alf, I'll do therapy there .
[2019-06-05 08:04] LABS: Cholesterol 124 mg/dL (0-200); HDL Direct 24 mg/dL; Triglycerides 100 mg/dL (<150)
[2019-06-05 08:15] LABS: LDL Cholesterol Direct 76 mg/dL
[2019-06-05] MEDS: DIGOXIN TAB 125 MCG TABLET PO (08:24)
[2019-06-05] MEDS: CLOPIDOGREL BISULFATE 75 MG TABLET PO (08:25)
[2019-06-05] MEDS: ASPIRIN 81 MG CHEWABLE TABLET PO (08:26)
[2019-06-05] MEDS: THIAMINE HCL 100 MG TABLET PO (08:26)
[2019-06-05] MEDS: PANTOPRAZOLE 40 MG TABLET PO (08:26)
--- NOTE | 2019-06-05 10:15 | WPDNEUROPN ---
Progress Note: A&P Assessment and Plan (1) Hematoma: Code(s): T14.8XXA - Other injury of unspecified body region, initial encounter Status: Acute (2) Peripheral arterial disease: Code(s): I73.9 - Peripheral vascular disease, unspecified Status: Acute (3) Hypertension: Code(s): I10 - Essential (primary) hypertension Status: Acute (4) Atrial fibrillation: Code(s): I48.91 - Unspecified atrial fibrillation Status: Acute (5) Neurological symptoms: Code(s): R29.90 - Unspecified symptoms and signs involving the nervous system Status: Acute (6) History of alcohol abuse: Code(s): F10.11 - Alcohol abuse, in remission Status: Acute (7) Tobacco dependence: Code(s): F17.200 - Nicotine dependence, unspecified, uncomplicated Status: Acute (8) Weakness: Code(s): R53.1 - Weakness Status: Acute Additional Plan stable on no anti coagulationbut dual anti platelet therapy Review of Systems Constitutional: Constitutional: Reports no additional constitutional complaints Exam Const: General: no acute distress Nutritional Appearance: average body habitus Eyes: General: appearance normal, both eyes and all related structures Alignment and Position: alignment normal Periorbital: periorbital findings normal Eyelids: eyelids normal Conjunctivae: conjunctivae normal Sclera: sclerae normal Cornea: corneas normal Pupils: Equal, round and reactive pupils present Direct Ophthalmoscopy: normal light reflex Neck: Neck: full ROM and no lymphadenopathy Resp: Effort & Inspection: normal respiratory effort Cardio: Rhythm: regular rhythm GI: Auscultation: normal bowel sounds Neuro: General: moves all extremities and no meningeal signs Cranial nerves: Yes Equal, round and reactive pupils present, Yes Nystagmus not present and Yes Ability to bilaterally elevate shoulders present Cognition (Neuro): abnormal cognition Speech: Abnormal speech present Gait exam (Neuro): Unable to assess gait Sensory Exam: Sensory deficit (Neuro) Objective Data Vital Signs Vital Signs: Vital Signs - 24 hr 06/04/19 12:00 06/04/19 14:00 06/04/19 20:00 Temperature 36.6 C Pulse Rate 89 83 65 Respiratory Rate 16 Blood Pressure 114/71 Pulse Oximetry 100 06/04/19 21:29 06/04/19 23:35 06/05/19 00:00 Temperature 36.9 C Pulse Rate 84 73 Respiratory Rate 18 Blood Pressure 100/55 L 115/67 Pulse Oximetry 100 06/05/19 04:00 06/05/19 05:44 06/05/19 08:24 Temperature 36.8 C Pulse Rate 80 84 84 Respiratory Rate 18 Blood Pressure 148/83 H Pulse Oximetry 98 Intake/Output Intake/Output: Intake & Output 06/02/19 06/03/19 06/04/19 06/05/19 23:59 23:59 23:59 23:59 Intake Total 3641 2130 520 Output Total 2050 1950 1050 Balance 1591 180 -530 Meds/Results Medications: Active Medications Generic Name Dose Route Start Last Admin Trade Name Freq PRN Reason Stop Dose Admin Hydrocodone Bitart/Acetaminophen 1 tab 06/02/19 23:09 06/03/19 00:18 [place] 5-325 Mg PO 1 tab Q4H PRN Administration Pain rated 4-6 Hydrocodone Bitart/Acetaminophen 2 tab 06/03/19 00:56 06/05/19 04:19 [place] 5-325 Mg PO 2 tab Q4H PRN Administration Pain Rated 7-10 Aspirin 81 mg 06/03/19 08:00 06/05/19 08:26 Aspirin Chewable PO 81 mg DAILY@0800 MERRITT Administration Atorvastatin Calcium 20 mg 06/02/19 23:15 06/04/19 20:18 Lipitor PO 20 mg HS MERRITT Administration Calcium Carbonate 200 mg 06/02/19 23:09 Tums PO QID PRN Heartburn Clopidogrel Bisulfate 75 mg 06/03/19 09:00 06/05/19 08:25 Plavix PO 75 mg DAILY MERRITT Administration Digoxin 125 mcg 06/03/19 09:00 06/05/19 08:24 Lanoxin Tab PO 125 mcg DAILY MERRITT Administration Diltiazem HCl 120 mg 06/03/19 09:00 06/05/19 08:24 Cardizem Cd PO 120 mg QAM MERRITT Administration Melatonin 3 mg 06/02/19 23:15 0
--- NOTE | 2019-06-05 11:00 | PCPTNOTE ---
The PT treatment was unable to be completed today due to patient refusal. Will continue per Plan of Care frequency and duration.
--- NOTE | 2019-06-05 11:25 | PM.CNCAR ---
Assessment and Plan Assessment and plan (1) Permanent atrial fibrillation: Code(s): I48.21 - Permanent atrial fibrillation Status: Acute Assessment and Plan: Longstanding atrial fibrillation currently with rapid ventricular response, asymptomatic. Heart rate control strategy. Patient has declined Xarelto or other systemic anticoagulation. Given history of GI bleed in the past requiring blood transfusion he was not deemed an anticoagulation candidate. Furthermore. Patient declines to reconsider in this regard. He declined colonoscopy in the past for to further clarify bleeding risk. Given recent falls patient remains a poor candidate for systemic anticoagulation despite unfortunate acute cerebrovascular accident likely secondary to his atrial fibrillation. Well from a stroke risk reduction perspective systemic anticoagulation would be strongly advised. However, patient at high risk for bleeding complications and patient has explicitly stated he does not agree to take anticoagulations but specifically indicated he was okay with clopidogrel and aspirin. Dual antiplatelet therapy is an inadequate regimen for significant stroke risk reduction in this circumstance, but as he is not a reasonable A/C candidate given recurrent fall risk and occult GI bleed history requiring tranfusions options quite limited. Other options as an outpatient to consider may be Watchman device at [facility] but given patient's history of noncompliance he may not be a good candidate in this regard. Increase diltiazem to 240 mg today (as he already had Diltiazem 120mg this AM). However, prefer beta-coral therapy Metoprolol 50mg TID (depending upon HR control) starting in AM for heart rate control particularly given EF 40-45% by echocardiogram with goal to avoid calcium channel blockers in the setting. Will up titrate as tolerated. Depending upon HR control would prefer to stop Digoxin as well. Heart rate control strategy primary management goal at this time. Continue aspirin and clopidogrel as tolerated. Monitor for bleeding. CHADS2 Vasc score 6, HAS BLED score 6. (2) Cardiomyopathy: Code(s): I42.9 - Cardiomyopathy, unspecified Status: Acute Assessment and Plan: compensated without evidence of CHF at this time. EF 40-45%. Cannot exclude underlying CAD. No anginal symptoms. Ischemic evaluation may be considered in the future, however, will continue medical therapy. Additional considerations include tachycardia induced cardiomyopathy related to atrial fibrillation, alcohol abuse, underlying CAD and/or other non-ischemic etiologies. (3) Acute CVA (cerebrovascular accident): Code(s): I63.9 - Cerebral infarction, unspecified Status: Acute Assessment and Plan: Acute cerebrovascular accident with evidence of old infarctions. Etiology very likely secondary to atrial fibrillation. Avoid additional antiarrhythmic therapy to minimize risk for chemical cardioversion which may further increase risk for acute embolic stroke. Systemic anticoagulation in general would be strongly advised, however, given frequent falls and GI bleed history patient is not a good candidate. Current confusion likely exacerbated by acute CVA. Patient very complicated, high risk for bleeding and/or recurrent embolic stroke complications. Statin therapy strongly advised given acute and chronic CVA. Continue Atorvastatin. (4) Hypertension: Code(s): I10 - Essential (primary) hypertension Status: Acute Assessment and Plan: Stable, avoid hypotension and excessive hypertension in setting of acute CVA. Appreciate Neurology involvement and recommendations. (5) History of alcohol abuse: Code(s): F10.11 - Alcohol abuse, in remission Status: Acute Assessment and Plan: Apparently abstinent of late. Abstinence from ETOH strongly advised. (6) Falls: Code(s): W19.XXXA - Unspecified fall, initial encounter Status:
--- NOTE | 2019-06-05 13:01 | PM.IMPN ---
Progress Note: A&P Assessment and Plan (1) Acute CVA (cerebrovascular accident): Code(s): I63.9 - Cerebral infarction, unspecified Status: Acute Assessment and Plan: Pt had CT brain wo contrast in the ED which revealed old infarcts of the right internal capsule and right temporal occipital region. MRI was completed yesterday and reveals acute infarcts in the right temporal parietal occipital region, right insula, and right frontoparietal region. He continues to have intermittent expressive aphasia, confusion with certain distant memory although he is able to recall other details, and some difficulty pronouncing certain words. Carotid doppler with <50% stenosis in the left ICA and 50-69% stenosis in the right ICA. Dr. Frederick has been consulted. Recommendations are greatly appreciated. Discussed with Dr. Frederick and we will continue ASA, plavix, and atorvastatin. Pt has refused CTA head and neck because he does not want contrast exposure. He has no know contrast allergy but reports that contrast caused severe pain in the past. I discussed this with his children who do not know of a specific allergy but are in agreement to respect his wishes and avoid CTA head and neck. Continue neurologic checks Q4HR Pt was evaluated by speech therapy and no further evaluation was recommended Pt will need to continue PT/OT at discharge. (2) Permanent atrial fibrillation: Code(s): I48.21 - Permanent atrial fibrillation Status: Acute Assessment and Plan: Telemetry reviewed from 06/04. Pt had atrial fibrillation with RVR this AM. He remains asymptomatic. His heart rate improved after he received his digoxin and cardizem. Dr. Gary with cardiology was consulted. Recommendations are greatly appreciated. Cardizem will be titrated to 240mg QD and will be titrated as tolerated. Metoprolol was also added. The pt is not on long-term anticoagulation. I called to speak with Dr. Wharton, his PCP, who stated that he was on xarelto in 2013 but has not been on an anticoagulant since 2013. He was on ASA and plavix until 04/29 when he was found to have profound anemia with Hb 6.9. He required 2-3 units PRBC. He underwent EGD but has not had his colonoscopy yet. He is adamantly refusing colonoscopy. He denies melena or hematochezia but I talked with Dr. Wharton who suspects that his anemia was due to GI blood loss. After transfusion, he experienced a fall 3/6 and was hospitalized at an outside facility. I believe ASA and plavix were resumed at that time due to concern for possible TIA/CVA. He also has a known hx of alcohol use but has been abstinent since he has been in the custodial. His HAS-BLED score is 6. His [id number] score is 6. I had a long discussion with his daughter, Lalita, and Son, Ramos. I discussed that he is at risk for recurrent strokes with his atrial fibrillation but he is also at high risk for bleeding. I discussed that he is on plavix and ASA at this time and his Hb & Hct seem to be relatively stable. Appreciate continued cardiology input. (3) Hypertension: Code(s): I10 - Essential (primary) hypertension Status: Acute Assessment and Plan: Blood pressures were reviewed and are stable. Continue cardizem which will be increased to 240mg per cardiology Appreciate continued input from cardiology and neurology (4) Tobacco dependence: Code(s): F17.200 - Nicotine dependence, unspecified, uncomplicated Status: Acute Assessment and Plan: Patient declines need for nicotine patch Discussed the importance of smoking cessation with the pt at length (5) History of alcohol abuse: Code(s): F10.11 - Alcohol abuse, in remission Status: Acute Assessment and Plan: Continue thiamine supplementation (6) Peripheral arterial disease: Code(s): I73.9 - Peripheral vascular disease, unspecified Status: Acute Assessment and Plan:
[2019-06-05] MEDS: DOCUSATE SODIUM 100 MG CAPSULE PO (20:57)
[2019-06-05] MEDS: MELATONIN 3 MG TABLET PO (20:57)
[2019-06-05] MEDS: TRAZODONE HCL 50 MG TABLET PO (20:58)
[2019-06-05] MEDS: ATORVASTATIN 20 MG TABLET PO (20:58)
[2019-06-06] VITALS (9 sets, daily range): BP systolic 106–148; BP diastolic 54–81; PULSE 65–87; RESP 16–18; TEMP 36.7–36.9; O2SAT 97
[2019-06-06 06:17] LABS: Hematocrit 35.7 % (42.0-52.0); Hemoglobin 10.1 g/dL (14.0-18.0); Mean Corpuscular HGB Conc 28.3 g/dl (32-36); Mean Corpuscular Volume 81.1 fl (80-100); Mean Platelet Volume 9.6 fl (7.4-10.4); Platelet Count Result 390 k/mm3 (150-375); Red Cell Distribution Width 19.7 % (11.5-14.5); White Blood Count 8.4 K/mm3 (4.5-10.0)
[2019-06-06 06:29] LABS: Blood Urea Nitrogen 13 mg/dL (9-20); Calcium 8.6 mg/dL (8.4-10.2); Carbon Dioxide 25 mmol/L (22-30); Chloride 103 mmol/L (98-107); Estimated CRCL calculation 77 ml/min; Estimated Glomerular Filt Rate > 60; Glucose 102 mg/dL (75-110); Sodium 135 mmol/L (137-145)
[2019-06-06 06:36] LABS: Transferrin 259 mg/dL (206-381)
[2019-06-06] MEDS: ASPIRIN 81 MG CHEWABLE TABLET PO (09:02)
[2019-06-06] MEDS: DIGOXIN TAB 125 MCG TABLET PO (09:02)
[2019-06-06] MEDS: CLOPIDOGREL BISULFATE 75 MG TABLET PO (09:02)
[2019-06-06] MEDS: DOCUSATE SODIUM 100 MG CAPSULE PO (09:03)
[2019-06-06] MEDS: METOPROLOL TARTRATE 50 MG TAB PO ×2 (09:03→13:12)
[2019-06-06] MEDS: THIAMINE HCL 100 MG TABLET PO (09:04)
[2019-06-06] MEDS: PANTOPRAZOLE 40 MG TABLET PO (09:04)
[2019-06-06 09:07] LABS: Iron 31 ug/dL (49-181)
[2019-06-06 09:23] LABS: Percent Iron Saturation 9 % (20-50)
--- NOTE | 2019-06-06 09:37 | PM.PNCARD ---
Progress Note: A&P Assessment and Plan (1) Permanent atrial fibrillation: Code(s): I48.21 - Permanent atrial fibrillation Status: Acute Assessment and Plan: Longstanding atrial fibrillation currently with rapid ventricular response, asymptomatic. Heart rate control strategy. Will avoid calcium channel blockers due to his EF 40 45%. Should also avoid digoxin. Heart rate better controlled this morning after just 1 dose of Metoprolol 50 mg. He lives at [facility]. Recommend Metoprolol 50 mg q.12 hours and monitor heart rate response. [facility] does not have capability of sending an EKG to the office so will depend on vital signs to assess rate control. Recommend checking heart rate daily. CHADS2 Vasc score 6, HAS BLED score 6. He has declined Xarelto or other systemic anticoagulation. Given history of GI bleed in the past requiring blood transfusion he was not deemed an anticoagulation candidate. He has declined colonoscopy in the past for to further clarify bleeding risk. Given recent falls patient remains a poor candidate for systemic anticoagulation despite unfortunate acute cerebrovascular accident likely secondary to his atrial fibrillation. He is agreeable to aspirin and clopidogrel. However dual antiplatelet therapy is an inadequate regimen for significant stroke risk reduction in this circumstance, but as he is not a reasonable A/C candidate. Given his GI bleed history requiring tranfusions options quite limited. Other options as an outpatient to consider may be Watchman device at [facility] but given his history of noncompliance he may not be a good candidate. (2) Cardiomyopathy: Qualifiers: Cardiomyopathy type: unspecified Qualified Code(s): I42.9 - Cardiomyopathy, unspecified Code(s): I42.9 - Cardiomyopathy, unspecified Status: Acute Assessment and Plan: Compensated. EF 40-45%. Cannot exclude underlying CAD. No anginal symptoms. Ischemic evaluation may be considered in the future, however, will continue medical therapy. Additional considerations include tachycardia induced cardiomyopathy related to atrial fibrillation, alcohol abuse, underlying CAD and/or other non-ischemic etiologies. (3) Acute CVA (cerebrovascular accident): Code(s): I63.9 - Cerebral infarction, unspecified Status: Acute Assessment and Plan: Acute cerebrovascular accident with evidence of old infarctions. Etiology very likely secondary to atrial fibrillation. Systemic anticoagulation in general would be strongly advised, however, given frequent falls and GI bleed history he is not a good candidate. Current confusion likely exacerbated by acute CVA. He is very complicated, high risk for bleeding and/or recurrent embolic stroke complications. Statin therapy strongly advised given acute and chronic CVA. Continue Atorvastatin. (4) Hypertension: Qualifiers: Hypertension type: essential hypertension Qualified Code(s): I10 - Essential (primary) hypertension Code(s): I10 - Essential (primary) hypertension Status: Acute Assessment and Plan: Stable, avoid hypotension and excessive hypertension in setting of acute CVA. Appreciate Neurology involvement and recommendations. (5) History of alcohol abuse: Code(s): F10.11 - Alcohol abuse, in remission Status: Acute Assessment and Plan: Apparently abstinent of late. Abstinence from ETOH strongly advised. Resides at [facility] (6) Falls: Qualifiers: Encounter type: subsequent encounter Qualified Code(s): W19.XXXD - Unspecified fall, subsequent encounter Code(s): W19.XXXA - Unspecified fall, initial encounter Status: Acute Assessment and Plan: History of frequent falls. Etiology unclear although possibly related
--- NOTE | 2019-06-06 10:41 | PCPTNOTE ---
The patient treatment was not able to be completed today due to patient's refusal to participate in therapy. Discussed with patient his need to increase mobility and demonstrate his ability to transfer and ambulate for safe discharge. Patient continued to refuse and states you people can just shovel me into the car!
--- NOTE | 2019-06-06 11:23 | PM.DS ---
DS: Diagnosis Admitting Diagnosis Admitting Diagnosis: Unspecified symptoms and signs involving the nervous system Discharge Diagnosis (1) Acute CVA (cerebrovascular accident): Code(s): I63.9 - Cerebral infarction, unspecified Status: Acute (2) Permanent atrial fibrillation: Code(s): I48.21 - Permanent atrial fibrillation Status: Chronic (3) Hypertension: Qualifiers: Hypertension type: essential hypertension Qualified Code(s): I10 - Essential (primary) hypertension Code(s): I10 - Essential (primary) hypertension Status: Chronic (4) Tobacco dependence: Code(s): F17.200 - Nicotine dependence, unspecified, uncomplicated Status: Chronic (5) History of alcohol abuse: Code(s): F10.11 - Alcohol abuse, in remission Status: Chronic (6) Peripheral arterial disease: Code(s): I73.9 - Peripheral vascular disease, unspecified Status: Chronic (7) Hematoma: Code(s): T14.8XXA - Other injury of unspecified body region, initial encounter Status: Acute (8) Iron deficiency anemia: Code(s): D50.9 - Iron deficiency anemia, unspecified Status: Acute DS: Summary Hospital Course Hospital Course: Mr. Domínguez is a 73 y.o. male with PMH significant for chronic atrial fibrillation, COPD, CVA, hx of alcohol abuse, hypertension, PAD, hyperlipidemia, tobacco dependence, GERD, and hx of falls who presented to the ED via EMS from [facility] due to concern for slurred speech and left sided weakness. Initial workup in the ED included CT willy wo contrast which revealed old infarcts in the right internal capsule and right temporal occipital region, CBC with normocytic anemia, and EkG with atrial fibrillation and nonspecific ST change. CMP was unremarkable. He was admitted to the hospitalist service for further evaluation and treatment. He was continued on ASA, plavix, and atorvastatin. Dr. Frederick with neurology was consulted. The pt exhibited expressive dysphasia and intermittent dysarthria. He had mild LUE weakness which improved and no gross focal facial deficits. Brain MRI revealed acute infarcts in the right temporal occipital region, right insula, and right frontoparietal region. Cardioembolic source was suspected as a potential etiology. Carotid doppler revealed <50% stenosis in the left ICA and 50-69% stenosis in the right ICA. He refused CTA head and neck for further evaluation. He was placed on telemetry which revealed persistent atrial fibrillation and intermittent atrial fibrillation with RVR. Echo revealed mild left ventricular enlargement with EF 40-45%. Cardiology was consulted and recommended metoprolol for rate control and discontinuation of digoxin and cardizem due to his reduced EF. His heart rate improved with this regimen. Due to his cardiomyopathy, underlying CAD could not be excluded and cardiology discussed that ischemic workup may be considered outpatient but they would proceed with medical therapy for now since the pt had no complaints of angina. Anticoagulation was strongly recommended for embolic stroke risk reduction but the patient is a poor candidate for anticoagulation at this time due to recent profound anemia requiring blood transfusion 04/2019 with GI bleed suspected as the source and hx of falls. His Phver6pacv score was 6 and his HASBLED score was 6. The patient adamantly refused colonoscopy. He was encouraged to follow-up outpatient and have the colonoscopy. I discussed that anticoagulation may be considered per cardiology and his PCP's discretion following colonoscopy if GI source is ruled out and hemoglobin and hematocrit are stable. A cardiology follow-up appointment was made with [facility]. His hemoglobin and hematocrit were stable during his stay on plavix and aspirin. He will need CBC checked at the long term in 3 days and then weekly until stable. He was advised to notify his caregiver at long term or PCP immediately s
--- NOTE | 2019-06-06 11:39 | PCOTNOTE ---
Attempted to see patient this a.m. When patient was asked to participate in OT session, patient stated wanting to be left alone. Patient refuses OT session this date.
== END 2019-06-06 15:35 | DRG 65 ==
LOC: ANHED 19:12 → ANH3MEDSUR 20:35
PROVIDERS: Physician Assistant; Admitting Provider Internal Medicine; Emergency Provider Emergency Medicine; Visit Provider Internal Medicine
DX: I63.50 Cerebral infarction due to unspecified occlusion or stenosis of unspecified cerebral artery (principal); I48.21 Permanent atrial fibrillation; I42.9 Cardiomyopathy, unspecified; Z86.73 Personal history of transient ischemic attack (TIA), and cerebral infarction without residual deficits; I48.91 Unspecified atrial fibrillation; I10 Essential (primary) hypertension; F10.11 Alcohol abuse, in remission; R29.705 NIHSS score 5; E78.5 Hyperlipidemia, unspecified; Z86.010 Personal history of colon polyps; I73.9 Peripheral vascular disease, unspecified; F17.210 Nicotine dependence, cigarettes, uncomplicated; Z79.82 Long term (current) use of aspirin; Z95.820 Peripheral vascular angioplasty status with implants and grafts; S70.12XA Contusion of left thigh, initial encounter; D50.9 Iron deficiency anemia, unspecified; R47.01 Aphasia
CPT/HCPCS: 36415; 70450; 70551; 71046; 76882; 80048; 80053; 80061; 80162; 81003; 82607; 82728; 82746; 83540; 83550; 83735; 84100; 84443; 84466; 85025; 85027; 85610; 87081; 92523; 92610; 93005; 93306; 93880; 96360; 96361; 97161; 97165; 99285; A9270; G0378; J1756; J7120

== ENCOUNTER 2019-06-12 16:57 | Inpatient (IN) | payer MEDICARE, MEDICAID, SELFPAY ==
[2019-06-12] VITALS (8 sets, daily range): BP systolic 93–155; BP diastolic 70–103; PULSE 90–112; RESP 15–20; TEMP 37.3–37.4; O2SAT 95–100
--- NOTE | ~2019-06-12 | CT_ITS ---
EXAMINATION: CT thoracic lumbar wo con EXAM DATE: 06/12/2019 18:57 INDICATION: Fall, thoracolumbar pain. TECHNIQUE: Spiral CT thoracolumbar spine was performed without contrast. Axial, coronal and sagittal thoracic spine images were reviewed. Axial, coronal and sagittal images of the lumbar spine were revi ewed. The dose-length product (DLP) for this examination was 2204.74 mGy-cm. The exposure was tailo red according to patient size (auto mA exposure control), and iterative reconstruction (ASIR) was use d as additional dose reduction technique. There is no prior study for comparison. FINDINGS: Thoracic spine: There are no acute fractures identified. The vertebral bodies are aligned in the AP d imension. There is overall moderate thoracic disc disease. No significant central canal or neural for aminal stenosis. Some small endplate osteophytes. Lumbar spine: There is chronic L5 bilateral spondylolysis with grade 2 anterolisthesis L5 on S1. Mode rate to severe disc disease from L2 through S1. There are no acute fractures identified. The sacroili ac joints are intact. There is mild to moderate lumbar dextroscoliosis. Renal cysts and sigmoid diver ticulosis. There is aortic arterial sclerosis. IMPRESSION: 1. No acute thoracolumbar fracture. 2. L5 spondylolysis with grade 2 anterolisthesis. 3. Thoracolumbar spondylosis. Reviewed, dictated and finalized at location A.
--- NOTE | ~2019-06-12 | XR_ITS ---
EXAMINATION: XR hip BI 2V w AP pelvis EXAM DATE: 06/12/2019 19:03 INDICATION: Fall. Transient alteration of awareness. TECHNIQUE: Each hip imaged independently (separate right and also left hip) 'frog leg' and frontal p rojections for interpretation. Frontal projection pelvis. There is no prior study for comparison. FINDINGS: No radiographic evidence of hip avascular necrosis. There is mild symmetric bilateral hip primary osteoarthritis. There is a left iliac stent. There are no acute fractures or dislocations yamileth ntified. There is no subcutaneous gas. There are arterial calcifications, arteriosclerosis. Moder ate lower lumbar spondylosis. Pelvic ring appears intact. IMPRESSION: 1. Pelvis, hip exam without acute osseous findings. Reviewed, dictated and finalized at location A.
--- NOTE | ~2019-06-12 | XR_ITS ---
EXAMINATION: XR chest 1V EXAM DATE: 06/12/2019 19:03 INDICATION: Fall. TECHNIQUE: Portable AP frontal chest x-ray was obtained. Comparison is made to prior examination from 06/02/2019. FINDINGS: Cardiac silhouette is enlarged but stable in size compared to prior exam. No confluent cons olidation, pneumothorax or pleural effusion suspected. There are mild bony degenerative changes. IMPRESSION: Cardiomegaly. Reviewed, dictated and finalized at location A. IMPRESSION: Cardiomegaly.
--- NOTE | ~2019-06-12 | CT_ITS ---
EXAMINATION: CT brain wo con, CT cervical spine wo con EXAM DATE: 06/12/2019 18:11 INDICATION: Fall. Head injury. Stroke like symptoms. TECHNIQUE: Spiral CT of the head was performed without contrast. Axial, coronal and sagittal images were reviewed. Spiral CT of the cervical spine was performed without contrast. Axial images were rev iewed. Coronal and sagittal reformatted images were also reviewed. The dose-length product (DLP) fo r this examination was 605.33 (accession [id number]), 439.11 (accession [id number]) mGy-cm. The exposure was tailored according to patient size, and iterative reconstruction (ASIR) was used as additional dose reduction technique. There is no prior study for comparison. FINDINGS: HEAD CT: There is no acute intraparenchymal hemorrhage. No evidence of intraparenchymal brain mass l esion. No evidence of acute infarction. Please note that initial head CT has limited sensitivity fo r small or acute infarctions. There is an old right internal capsular lacunar infarction. There is a n old moderate-sized right occipital lobe infarction. There is mild periventricular and subcortical h ypodensity, nonspecific but probably related to small vessel ischemic disease. There is moderate pr ominence of the sulci and ventricles related to cerebral atrophy. There is intracranial carotid art eriosclerosis. There are no extra-axial collections. There is no mass effect or midline shift. The orbits are unremarkable. Soft tissue is unremarkable. Small bilateral mastoid effusions. CERVICAL CT: There is no evidence of acute cervical fracture. The odontoid process is intact. Pre-d ens space is normal. Prevertebral soft tissue is normal. There are no soft tissue abnormalities yamileth ntified. There is no disc space widening or traumatic vertebral body subluxation suspected. There i s severe cervical spondylosis. A detailed level by level evaluation of spondylosis can be added as a ddendum if requested. IMPRESSION: 1. No acute intracranial or cervical findings. 2. Old right occipital lobe, right internal capsular infarctions. 3. Age-related intracranial findings. 4. Severe cervical spondylosis. Reviewed, dictated and finalized at location A. IMPRESSION: 1. No acute intracranial or cervical findings. 2. Old right occipital lobe, right internal capsular infarctions. 3. Age-related intracranial findings. 4. Severe cervical spondylosis.
--- NOTE | ~2019-06-12 | XR_ITS ---
EXAMINATION: XR hand LT min 3V EXAM DATE: 06/12/2019 21:32 INDICATION: Recent fracture. TECHNIQUE: Left hand frontal, lateral and oblique projections obtained and reviewed. There is no augusto or study for comparison. FINDINGS: The left hand and wrist are in a splint. There is a fifth metacarpal shaft fracture with ev idence of early healing suspected. Minimal displacement, near-anatomic alignment. No other fractures are identified. IMPRESSION: Left fifth metacarpal shaft fracture. Reviewed, dictated and finalized at location A.
--- NOTE | ~2019-06-12 | MR_ITS ---
EXAMINATION: MR brain/brain stem wo/w con DATE: 06/13/2019 09:09 INDICATION: Altered mental status. TECHNIQUE: Magnetic resonance imaging (MRI) of the brain and brainstem was performed without and with 17 mL MultiHance intravenous contrast. Sequences included sagittal and axial T1-weighted FSE, axial diffusion-weighted FS EPI, axial T2*-weighted GRE, axial T2-weighted FLAIR Propeller, and axial T2-we ighted Propeller. Postcontrast sequences included axial and coronal T1-weighted FSE. Apparent diffusi on coefficient (ADC) maps were created. COMPARISON: Brain MRI 06/04/2027, head CT 06/12/2019 FINDINGS: There is an old infarct involving the right basal ganglia and right internal capsule. There is a large distribution of acute infarct involving the right frontal and temporal lobes, right basal ganglia, right internal capsule, and right insula in the expected distribution of right middle cereb ral artery. There is a subacute infarct involving the right temporal parietal region. There is a smal l acute infarct in posterior left frontal lobe. There is an old infarct involving posterior left fron leda lobe and left insula. There is an old infarct involving right temporal occipital region in the ex pected distribution of right posterior cerebral artery. There is a small old infarct in left parietal lobe. There is no intracranial hemorrhage or abnormal mass lesion. There is ex vacuo dilatation of r ight lateral ventricle. There are bilateral mastoid effusions. There is mild mucosal thickening in th e ethmoid sinuses. The orbits are normal. IMPRESSION: 1. Large distribution of acute infarct involving the right frontal and temporal lobes, right basal ga nglia, right internal capsule, and right insula. 2. Small acute infarct in posterior left frontal lobe. 3. Subacute infarct involving the right temporal parietal region. 4. Old infarcts involving the right basal ganglia, right internal capsule, right temporal parietal re gion, left frontal lobe, left insula, and left parietal lobe. Reviewed, dictated and finalized at location A. IMPRESSION: 1. Large distribution of acute infarct involving the right frontal and temporal lobes, right basal ganglia, right internal capsule, and right insula. 2. Small acute infarct in posterior left frontal lobe. 3. Subacute infarct involving the right temporal parietal region. 4. Old infarcts involving the right basal ganglia, right internal capsule, righ t temporal parietal region, left frontal lobe, left insula, and left parietal l obe.
--- NOTE | 2019-06-12 18:34 | ECG_ITS ---
Measurements Intervals [place] Rate: 89 P: MD: 0 QRS: 50 QRSD: 100 T: 47 QT: 345 QTc: 421 Interpretive Statements ATRIAL FIBRILLATION CANNOT RULE OUT SEPTAL INFARCT, AGE INDETERMINATE BASELINE ARTIFACT- I, II, AVR, AVL, AVF ABNORMAL ECG Electronically Signed On 06-13-2019 6:56:50 CDT by Alex Jose D.O.
[2019-06-12 18:47] LABS: Basophils Absolute Auto 0.1 K/mm3 (0.0-0.1); Eosinophils Absolute Auto 0.3 K/mm3 (0-0.3); Eosinophils Percent Auto 3.6 % (0-4.4); Hematocrit 39.1 % (42.0-52.0); Hemoglobin 11.1 g/dL (14.0-18.0); Immature Granulocyte Absolute 0.04 K/mm3 (0.00-0.031); Immature Granulocyte Percent A 0.4 % (0-0.5); Lymphocytes Absolute Auto 1.26 K/mm3 (0.9-3.2); Lymphocytes Percent Auto 14.1 % (18.3-44.2); Mean Corpuscular HGB Conc 28.4 g/dl (32-36); Mean Corpuscular Hemoglobin 23.5 pg (26-34); Mean Corpuscular Volume 82.7 fl (80-100); Mean Platelet Volume 9.6 fl (7.4-10.4); Monocytes Absolute Auto 1.1 K/mm3 (0.1-0.6); Monocytes Percent Auto 12.2 % (2.6-8.5); Neutrophils Absolute Auto 6.1 K/mm3 (1.3-6.7); Neutrophils Percent Auto 68.7 % (45.5-73.1); Platelet Count Result 449 k/mm3 (150-375); Red Blood Count 4.73 M/mm3 (4.6-6.20); Red Cell Distribution Width 20.3 % (11.5-14.5); White Blood Count 8.9 K/mm3 (4.5-10.0)
[2019-06-12 18:51] LABS: Hypochromasia 1+ (NORMAL); Platelet Estimate Increased (Adequate)
--- NOTE | 2019-06-12 18:56 | ED.NEUROSD ---
HPI - Neuro Symptoms/Deficit General Chief Complaint: Neuro Symptoms/Deficit <Tessa Venegas PA-C - Last Filed: 06/12/19 22:40> Stated Complaint: ?TIA/FALL <Tessa Venegas PA-C - Last Filed: 06/12/19 22:40> Time Seen by Provider: 06/12/19 18:11 <Tessa Venegas PA-C - Last Filed: 06/12/19 22:40> Source: patient <CITLALY Nice Last Filed: 06/12/19 22:40> Mode of arrival: EMS <CITLALY Nice Last Filed: 06/12/19 22:40> Limitations: altered mental status <CITLALY Nice Last Filed: 06/12/19 22:40> History of Present Illness HPI Narrative: This is a 73 year old male that presents to the ER via EMS for altered mental status. Per EMS patient was found on his bathroom floor and was not able to answer questions appropriately. Reports he did have some slurred speech as well which has resolved. Report he was recently admitted here for a CVA. Patient currently can only answer some questions appropriately. Reports some back pain. Otherwise has no complaints. <Tessa Venegas PA-C - Last Filed: 06/12/19 22:40> Related Data Home Medications: Home Medications Medication Instructions Recorded Confirmed aspirin [Adult Low Dose Aspirin] 81 mg PO DAILY 06/02/19 06/02/19 calcium carbonate [Antacid 200 mg PO QID PRN 06/02/19 06/02/19 (calcium carbonate)] clopidogrel 75 mg PO DAILY 06/02/19 06/02/19 hydrocodone-acetaminophen 1 tablet PO Q4H PRN 06/02/19 06/02/19 melatonin 3 mg PO HS 06/02/19 06/02/19 pantoprazole 40 mg PO DAILY 06/02/19 06/02/19 thiamine HCl (vitamin B1) [Vitamin 100 mg PO DAILY 06/02/19 06/02/19 B-1] trazodone 50 mg PO HS 06/02/19 06/02/19 <CITLALY Nice Last Filed: 06/12/19 22:40> Allergies/Adverse Reactions: Allergies Allergy/AdvReac Type Severity Reaction Status Date / Time erythromycin base Allergy Unknown Verified 06/12/19 17:19 <Tessa Venegas PA-C - Last Filed: 06/12/19 22:40> Review of Systems Review of Systems: Narrative: Limited due to patient's condition: CONSTITUTIONAL: Denies fever CARDIOVASCULAR: Denies chest pain RESPIRATORY: Denies dyspnea. GASTROINTESTINAL: Denies abdominal pain <Tessa Venegas PA-C - Last Filed: 06/12/19 22:40> All systems reviewed & are unremarkable except as noted in HPI and below <Tessa Venegas PA-C - Last Filed: 06/12/19 22:40> PMFSH Social History Social History: Social History Social History: The patient lives in his own home in [place]. He is a retired senior production manager at a factory. He designates his son Jose as his surrogate decision maker. He is listed as a full code. He has smoked at least 1 pack of cigarettes per day for the past 50 years. He has drank a 6 pack of beer daily since his 30s, but has cut back to 1 to 2 beers a day. Smoking packs per day: 1 Smoking cigarettes per day: 20.0 Years smoked: 50 Smoking pack-years: 50.00 Additional smoking assessment comments: Gender identity (if verbalized by the patient): Male Spiritual care concerns: No Agree to blood products: Yes <Tessa Venegas PA-C - Last Filed: 06/12/19 22:40> Exam Narrative: Exam Narrative: GENERAL: Well-appearing, well-nourished, and in no acute distress. HEAD: Normocephalic, atraumatic. EYES: Right pupilis slightly larger than the left, both reactive to light. EOMI. ENT: Nares clear, no rhinorrhea or epistaxis. Mucous membranes moist. Oropharynx without tonsillar hypertrophy exudate or other lesions. Bilateral TMs pearly richardson non-bulging NECK: Supple. No adenopathy or masses. CHEST: Clear to auscultation. No respiratory distress. No wheezes rales or rhonchi HEART: Regular rate and rhythm. No murmur heard. Normal peripheral pulses. EXTREMITIES: Normal range of motion. No edema. Strength equal in bilateral lower extremities. Left hand in a volar splint SKIN: Warm, dry, no rash. NEURO: No focal deficit
--- NOTE | 2019-06-12 18:57 | PC.NURSE ---
add on called in at 185
[2019-06-12 19:06] LABS: Creatine Kinase 32 U/L (55-170)
[2019-06-12 19:07] LABS: Alanine Aminotransferase 15 U/L (4-50); Albumin Level 3.9 g/dL (3.5-5.1); Alkaline Phosphatase 82 U/L (38-126); Aspartate Amino Transferase 22 U/L (17-59); Bilirubin,Total 0.3 mg/dL (0.2-1.3); Blood Urea Nitrogen 16 mg/dL (9-20); Carbon Dioxide 27 mmol/L (22-30); Chloride 101 mmol/L (98-107); Estimated Glomerular Filt Rate > 60; Glucose 95 mg/dL (75-110); Potassium 4.3 mmol/L (3.4-5.0); Sodium 135 mmol/L (137-145)
[2019-06-12 19:08] LABS: Prothrombin Time 12.6 Seconds (11.1-14.7)
[2019-06-12 19:09] LABS: Partial Thromboplastin Time 28.4 SECONDS (22.3-36.8)
[2019-06-12 19:19] LABS: Troponin I < 0.012 ng/mL (0.000-0.034)
[2019-06-12 19:28] LABS: Add Urine Microscopic? NO; Appearance Urine Clear (Clear); Bilirubin Urine Negative (Negative); Blood Urine Negative (Negative); Color Urine Yellow (Yellow); Glucose Urine UA Negative (Negative); Ketones Urine Negative (Negative); Leukocyte Esterase Ur Negative LEU/UL (Negative); Mucus Urine Rare /lpf; Nitrate Urine Negative (Negative); Protein Urine Negative (Negative); RBC Urine 0-2 /hpf (0-2); Specific Grav Ur 1.012 (1.001-1.035); Squamous Epithelial Cell Urine Rare /hpf (Few); Urobilinogen Urine Negative mg/dL (<2.0)
--- NOTE | 2019-06-12 20:25 | PC.NURSE ---
pt noted to have decub on bottom, provider in to assess the pt
[2019-06-12] MEDS: ACETAMINOPHEN 325 MG TABLET 650 MG PO (21:49)
[2019-06-12] MEDS: SODIUM CHLORIDE 0.9% IV 1,000 ML 999 ML IV CONT (21:49)
[2019-06-13] VITALS (15 sets, daily range): BP systolic 127–156; BP diastolic 63–90; PULSE 83–106; RESP 14–18; TEMP 36.6–37.3; O2SAT 96–100; BMI 26.4
--- NOTE | 2019-06-13 00:15 | ADMGEN ---
This patient, Zackary Domínguez, was admitted to Medical Room 342-01. Patient/family oriented to hospital policies and general routines including ID bracelet, bed and alarms, visiting hours, pain management, procedures, bathroom and other care routines, personal items, smoking policy, room service/diet, and visiting hours. Valuables list has been completed. Information on how to activate the Rapid Response Team has been discussed. Patient/Family are encouraged to report perceived risks to care and to ask questions if they do not understand what they are told or what they should do.
--- NOTE | 2019-06-13 02:08 | PC.NURSE ---
Pt assessed at 0020, wrote wrong time
[2019-06-13] MEDS: ASPIRIN 81 MG ENTERIC TABLET PO (09:45)
[2019-06-13] MEDS: METOPROLOL TARTRATE 50 MG TAB PO ×2 (09:45→20:52)
[2019-06-13] MEDS: PANTOPRAZOLE 40 MG TABLET PO (09:45)
[2019-06-13] MEDS: CLOPIDOGREL BISULFATE 75 MG TABLET PO (09:45)
--- NOTE | 2019-06-13 14:42 | WPDNEURCNPN ---
Assessment and Plan Assessment and plan (1) Iron deficiency anemia: Code(s): D50.9 - Iron deficiency anemia, unspecified Status: Acute (2) Cardiomyopathy: Qualifiers: Cardiomyopathy type: unspecified Qualified Code(s): I42.9 - Cardiomyopathy, unspecified Code(s): I42.9 - Cardiomyopathy, unspecified Status: Acute (3) History of GI bleed: Code(s): Z87.19 - Personal history of other diseases of the digestive system Status: Acute (4) Acute CVA (cerebrovascular accident): Code(s): I63.9 - Cerebral infarction, unspecified Status: Acute (5) Falls: Qualifiers: Encounter type: subsequent encounter Qualified Code(s): W19.XXXD - Unspecified fall, subsequent encounter Code(s): W19.XXXA - Unspecified fall, initial encounter Status: Acute (6) Permanent atrial fibrillation: Code(s): I48.21 - Permanent atrial fibrillation Status: Chronic (7) Peripheral arterial disease: Code(s): I73.9 - Peripheral vascular disease, unspecified Status: Chronic (8) Hypertension: Qualifiers: Hypertension type: essential hypertension Qualified Code(s): I10 - Essential (primary) hypertension Code(s): I10 - Essential (primary) hypertension Status: Chronic (9) Atrial fibrillation: Qualifiers: Atrial fibrillation type: unspecified Qualified Code(s): I48.91 - Unspecified atrial fibrillation Code(s): I48.91 - Unspecified atrial fibrillation Status: Acute (10) History of alcohol abuse: Code(s): F10.11 - Alcohol abuse, in remission Status: Chronic (11) Tobacco dependence: Code(s): F17.200 - Nicotine dependence, unspecified, uncomplicated Status: Chronic (12) Weakness: Code(s): R53.1 - Weakness Status: Acute (13) Cerebrovascular accident, old: Code(s): Z86.73 - Personal history of transient ischemic attack (TIA), and cerebral infarction without residual deficits Status: Acute Additional Plan unfortunately the patient is a candidate for having an other stroke due to his longstanding atrial fibrillation likewise he has been noncompliant and history of multiple falls and cardiology has seen him be and I agree with them that he is a very poor candidate for anti coagulation more over he does not want any anticoagulation and he is okay with the aspirin and Plavix which of course is not the ideal treatment at this point we should continue the present management resumption of the aspirin and Plavix and go from there Consult date: 06/13/19 Time Seen: 14:30 HPI: Zackary Domínguez is a 73 year old male was examined by this examiner at about 2:30 p.m. on June 13, 2019. Patient is quite and aware what exactly happened to him the data is obtained from the ER record apparently he presented to emergency room by EMS for altered mental status. Patient was found on his bathroom and was not able to answer questions appropriately he did not have any slurring the speech by the time he came probably resolved patient denies any headache nausea vomiting chest pain or shortness of breath fever chills or sore throat Review of Systems Review of Systems: All systems reviewed & are unremarkable except as noted in HPI and below PMFSH Past Medical History Medical History Atrial fibrillation COPD (chronic obstructive pulmonary disease) CVA (cerebral vascular accident) Old infarcts involving the right internal capsule and right temporal occipital region, noted on brain CT 06/02/2019. History of alcohol abuse History of colon polyps Hypertension Peripheral arterial disease Tobacco dependence Surgical History Surgical History History of appendectomy History of sinus surgery History of vascular surgery Bilateral lower extremity popliteal bypass. Family History Family His
--- NOTE | 2019-06-13 15:59 | PM.IMHP ---
H&P: HPI History of Present Illness Chief complaint: altered mental status Narrative: Zackary Domínguez is a 73 year old male who presented emergency room after being found down it [facility] for an unknown amount of time. Patient was seen today and able to answer most questions. Patient states he does not remember much but knows that he has been falling lately and thinks he is here for fall. He says he has absolutely no weakness, numbness or tingling on any part of his body. He says he is not in any pain. He says his speech is not any more slurred or slow than normal. He says he occasionally has issues with word-finding and has not had any problems swallowing. He denies chest pain, shortness of breath, fevers, chills, abdominal pain, leg swelling, diarrhea, constipation, nausea or vomiting. I spoke with the patient about his extensive stroke and the plan. He says he does not want a CTA at this time. I spoke with him about the importance of CTA and that it would help determine our management. He said he absolutely will not do one but would not give me a reason why. I also spoke to him about being transferred if that were an option and he said he would not want that either. I told him I spoke to [facility] stroke center and they recommended a CTA and a TALITA. He said he doubts he will go through with the TALITA but would like to talk to Cardiology about the procedure. Overall, the patient had no complaints at this time. I did briefly speak to him about hospice and he was not for or against it at this time. Review of Systems Review of Systems: All systems reviewed & are unremarkable except as noted in HPI and below [facility] Past Medical History Medical History Atrial fibrillation COPD (chronic obstructive pulmonary disease) CVA (cerebral vascular accident) Old infarcts involving the right internal capsule and right temporal occipital region, noted on brain CT 06/02/2019. History of alcohol abuse History of colon polyps Hypertension Peripheral arterial disease Tobacco dependence Surgical History Surgical History History of appendectomy History of sinus surgery History of vascular surgery Bilateral lower extremity popliteal bypass. Family History Family History Mother Acute myocardial infarction Sibling Carcinoma of colon Social History Social History (Updated 06/13/19 @ 17:01 by Minerva Oropeza PA-C) Social History: The patient lives at [facility]. 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 He designates his son Jose as his surrogate decision maker. He would like to be DNR. He has smoked at least 1 pack of cigarettes per day for the past 50 years. He has drank a 6 pack of beer daily since his 30s, but has cut back to 1 to 2 beers a day before going into the snf. Smoking packs per day: 1 Smoking cigarettes per day: 20.0 Years smoked: 50 Smoking pack-years: 50.00 Smoking status: Current every day smoker Tobacco type: cigarettes Additional smoking assessment comments: Alcohol intake: former Drinks per week: 6 Substance use: never Substance use type: does not use Gender identity (if verbalized by the patient): Male Spiritual care concerns: No Agree to blood products: Yes Meds Home Medications and Allergies Home Medications Medication Instructions Recorded Confirmed Type aspirin [Adult Low Dose Aspirin] 81 mg PO DAILY 06/02/19 06/13/19 History calcium carbonate [Antacid 200 mg PO QID PRN 06/02/19 06/13/19 History (calcium carbonate)] clopidogrel 75 mg PO DAILY 06/02/19 06/13/19 History hydrocodone-acetaminophen 1 tablet PO Q4H PRN 06/02/19 06/13/19 History melatonin 3 mg PO HS 06/02/19 06/13/19 History pantoprazole 40 mg PO DAILY 06/02/19 06/13/19 History thiamine HCl (vitamin B1) [Vi
[2019-06-13] MEDS: MELATONIN 3 MG TABLET PO (20:52)
[2019-06-13] MEDS: ATORVASTATIN 40 MG TABLET PO (20:52)
[2019-06-14] VITALS (11 sets, daily range): BP systolic 92–122; BP diastolic 49–82; PULSE 71–115; RESP 14–18; TEMP 36.4–37.3; O2SAT 97–98
[2019-06-14] MEDS: METOPROLOL TARTRATE 50 MG TAB PO ×2 (09:33→20:33)
[2019-06-14] MEDS: PANTOPRAZOLE 40 MG TABLET PO (09:33)
[2019-06-14] MEDS: FERROUS SULFATE 324 MG TABLET PO (09:33)
--- NOTE | 2019-06-14 11:16 | PM.IMPN ---
Progress Note: A&P Assessment and Plan (1) Acute CVA (cerebrovascular accident): Code(s): I63.9 - Cerebral infarction, unspecified Status: Acute Assessment and Plan: -----patient's MRI shows a large stroke in the areas of the right brain. He also has right carotid stenosis on ultrasound 50-69%. Patient is adamantly refusing is CTA so we cannot access the true stenosis there. I called [facility] stroke service 06/12 since he has had multiple strokes and now has this large stroke and they recommend CTA and TALITA. They also recommend holding aspirin, Plavix and not starting anticoagulants for at least a week. They recommend in 1 week from 06/11 to restart aspirin and add anticoagulation if he is appropriate. They recommend Pradaxa. At this time will continue atorvastatin. This stroke is likely from atrial fibrillation but cannot exclude plaque component. I have spoken to Cardiology who will see him on Sunday and discuss a possible TALITA. The patient has very few deficits from this large stroke. PT, ST and OT have been ordered. (2) Permanent atrial fibrillation: Code(s): I48.21 - Permanent atrial fibrillation Status: Chronic Assessment and Plan: ----- Continue metoprolol right now. He was seen by cardiology last month and they took him off digoxin and diltiazem. Will monitor his heart rate and adjust medications as needed (3) Falls: Qualifiers: Encounter type: subsequent encounter Qualified Code(s): W19.XXXD - Unspecified fall, subsequent encounter Code(s): W19.XXXA - Unspecified fall, initial encounter Status: Acute Assessment and Plan: -----Continue PT and OT (4) Iron deficiency anemia: Code(s): D50.9 - Iron deficiency anemia, unspecified Status: Acute Assessment and Plan: -----oral iron started. Patient has a history of a GI bleed. Poor candidate for intervention at this time. No signs of acute bleed. (5) Cardiomyopathy: Qualifiers: Cardiomyopathy type: unspecified Qualified Code(s): I42.9 - Cardiomyopathy, unspecified Code(s): I42.9 - Cardiomyopathy, unspecified Status: Acute Assessment and Plan: -----seen during last stay. EF 40-45%. Continue metoprolol. Consider adding Jairo/Arb after allowing permissive hypertension (6) Peripheral arterial disease: Code(s): I73.9 - Peripheral vascular disease, unspecified Status: Chronic Assessment and Plan: -----will hold aspirin and Plavix at this time due to above. He has a bypass but I am unsure about any actual stents. (7) Hypertension: Qualifiers: Hypertension type: essential hypertension Qualified Code(s): I10 - Essential (primary) hypertension Code(s): I10 - Essential (primary) hypertension Status: Chronic Assessment and Plan: -----last blood pressure 122/82. Continue metoprolol. Additional Plan Patient is being admitted as an inpatient status and supervising physician is Dr. Grace Brown Subjective Date/time seen: 06/14/19 11:16 Interval history: Pt is a 73-year-old male here for acute stroke. Patient was seen today and says he is very tired. He did not sleep well overnight but does not know why. He currently has a frontal headache that is a 2/10 but thinks because he has not slept. He still has no weakness, numbness, or problems swallowing. He says his speech is about the same. Patient still does not want a CTA at this time. He denies chest pain, shortness of breath, heart palpitations, fevers, chills, abdominal pain, or leg swelling. Exam Narrative: Exam Narrative: General:Well developed well nourished patient resting comfortably in bed in no acute distress HEENT: Normocephalic, atraumatic, PERRL, Sclerae anicteric, oral mucosa moist. Neck: Supple Resp: CTA Heart: Irregularly irregular. Telemetry shows atrial fibrillation with occasional RVR. He was 135 tod
--- NOTE | 2019-06-14 14:18 | PCSTNOTE ---
Patient lethargic impacting ability to participate in skilled ST evaluation. Per RN, patient with increased lethargy following PT. Will attempt to re-eval on 06/14.
[2019-06-14] MEDS: ACETAMINOPHEN 325 MG TABLET 650 MG PO (20:33)
[2019-06-14] MEDS: ATORVASTATIN 40 MG TABLET PO (20:33)
[2019-06-14] MEDS: MELATONIN 3 MG TABLET PO (20:33)
[2019-06-15] VITALS (12 sets, daily range): BP systolic 111–140; BP diastolic 66–89; PULSE 75–98; RESP 16–18; TEMP 36.4–36.6; O2SAT 95–100
[2019-06-15 05:38] LABS: Hematocrit 37.4 % (42.0-52.0); Hemoglobin 10.9 g/dL (14.0-18.0); Mean Corpuscular HGB Conc 29.1 g/dl (32-36); Mean Corpuscular Hemoglobin 23.4 pg (26-34); Mean Corpuscular Volume 80.4 fl (80-100); Mean Platelet Volume 9.4 fl (7.4-10.4); Platelet Count Result 390 k/mm3 (150-375); Red Blood Count 4.65 M/mm3 (4.6-6.20); Red Cell Distribution Width 20.4 % (11.5-14.5)
[2019-06-15 06:06] LABS: Blood Urea Nitrogen 14 mg/dL (9-20); Calcium 8.7 mg/dL (8.4-10.2); Carbon Dioxide 23 mmol/L (22-30); Chloride 101 mmol/L (98-107); Estimated CRCL calculation 77 ml/min; Estimated Glomerular Filt Rate > 60; Glucose 98 mg/dL (75-110); Potassium 3.9 mmol/L (3.4-5.0); Sodium 131 mmol/L (137-145)
[2019-06-15] MEDS: METOPROLOL TARTRATE 50 MG TAB PO ×2 (08:15→21:37)
[2019-06-15] MEDS: FERROUS SULFATE 324 MG TABLET PO (08:15)
[2019-06-15] MEDS: PANTOPRAZOLE 40 MG TABLET PO (08:15)
--- NOTE | 2019-06-15 09:06 | PCOTNOTE ---
Patient refused treatment this session due to being too tired to participate in therapy, will attempt again later.
--- NOTE | 2019-06-15 11:31 | PCOTNOTE ---
Patient refused treatment this session due to being too tired. Patient declined to sit up in chair and eat lunch and was offered much encouragement but adamantly refused to participate.
--- NOTE | 2019-06-15 13:24 | PCPTNOTE ---
Attempted to see pt today for PT- pt refused
--- NOTE | 2019-06-15 14:54 | PM.IMPN ---
Progress Note: A&P Assessment and Plan (1) Acute CVA (cerebrovascular accident): Code(s): I63.9 - Cerebral infarction, unspecified Status: Acute Assessment and Plan: -----patient's MRI shows a large stroke in the areas of the right brain. He also has right carotid stenosis on ultrasound 50-69%. Patient is adamantly refusing is CTA so we cannot access the true stenosis there. I called [facility] stroke service 06/12 since he has had multiple strokes and now has this large stroke and they recommend CTA and TALITA. They also recommend holding aspirin, Plavix and not starting anticoagulants for at least a week. They recommend in 1 week from 06/11 to restart aspirin and add anticoagulation if he is appropriate. They recommend Pradaxa. At this time will continue atorvastatin. This stroke is likely from atrial fibrillation but cannot exclude plaque component. I have spoken to Cardiology who will see him on Sunday and discuss a possible TALITA. If he does not do the TALITA he can be discharged to SNF or [facility] tomorrow. The patient has very few deficits from this large stroke. PT, ST and OT have been ordered but refused today. (2) Permanent atrial fibrillation: Code(s): I48.21 - Permanent atrial fibrillation Status: Chronic Assessment and Plan: ----- Continue metoprolol right now. He was seen by cardiology last month and they took him off digoxin and diltiazem. Will monitor his heart rate and adjust medications as needed but so far he is doing well. (3) Falls: Qualifiers: Encounter type: subsequent encounter Qualified Code(s): W19.XXXD - Unspecified fall, subsequent encounter Code(s): W19.XXXA - Unspecified fall, initial encounter Status: Acute Assessment and Plan: -----Continue PT and OT (4) Iron deficiency anemia: Code(s): D50.9 - Iron deficiency anemia, unspecified Status: Acute Assessment and Plan: -----oral iron started. Patient has a history of a GI bleed. Poor candidate for intervention at this time. No signs of acute bleed. (5) Cardiomyopathy: Qualifiers: Cardiomyopathy type: unspecified Qualified Code(s): I42.9 - Cardiomyopathy, unspecified Code(s): I42.9 - Cardiomyopathy, unspecified Status: Acute Assessment and Plan: -----seen during last stay. EF 40-45%. Continue metoprolol. Consider adding Jairo/Arb after allowing permissive hypertension (6) Peripheral arterial disease: Code(s): I73.9 - Peripheral vascular disease, unspecified Status: Chronic Assessment and Plan: -----will hold aspirin and Plavix at this time due to above. He has a bypass but I am unsure about any actual stents. (7) Hypertension: Qualifiers: Hypertension type: essential hypertension Qualified Code(s): I10 - Essential (primary) hypertension Code(s): I10 - Essential (primary) hypertension Status: Chronic Assessment and Plan: -----last blood pressure 140/89 Continue metoprolol. Subjective Date/time seen: 06/15/19 14:54 Interval history: Pt is a 73-year-old male here for acute stroke. Patient was seen today and is tired and a little disgruntled today. He says he is tired and just wanting to rest. He answers most of my questions but others he does not. He denies numbness or weakness to any part of his body. He has no problem with eating or choking on food. He is still unsure about the TALITA, says i don't know probably not but says he will talk to a electric sealing machine operator. Exam Narrative: Exam Narrative: General:Well developed well nourished patient resting comfortably in bed in no acute distress HEENT: Normocephalic, atraumatic, PERRL, Sclerae anicteric, oral mucosa moist. Neck: Supple Resp: CTA Heart: Irregularly irregular. Telemetry shows atrial fibrillation with occasional RVR but now rate 84 Abd: Soft, nontender. No pain to palpation. Positive bowel sounds Skin
[2019-06-15] MEDS: ATORVASTATIN 40 MG TABLET PO (21:37)
[2019-06-15] MEDS: MELATONIN 3 MG TABLET PO (21:37)
[2019-06-16] VITALS (10 sets, daily range): BP systolic 108–132; BP diastolic 60–78; PULSE 77–102; RESP 14–16; TEMP 36.2–36.6; O2SAT 97–100
--- NOTE | 2019-06-16 | ECHOL_ITS ---
Patient Info Name: Zackary Domínguez Age: 73 years : 1945 Gender: Male Ht: 72 in Wt: 194 lbs BSA: 2.13 m2 HR: 84 bpm BP: 119 / 71 mmHg Heart Rhythm: Atrial Fibrillation Technical Quality: Good Exam Date: 06/16/2019 11:45 AM Exam Location: [facility] Patient Status: Inpatient Admit Date: 06/12/2019 Staff Ordering Physician: Minerva Oropeza PA-C Lot Technician: Danitza Rivera RDCS Attending Provider: Minerva Oropeza PA-C Referring Physician: Sandip MOLINA; Exam Type: CA echo limited Study Info Indications - stroke Complete two-dimensional, color flow and Doppler transthoracic echocardiogram is performed. Summary 1. Left ventricular chamber dimension is mildly enlarged. 2. Left ventricular systolic function is mildly reduced, estimated at 40-45%. 3. Right ventricular chamber dimension is normal. 4. Left atrial chamber dimension is moderately enlarged. 5. Study requested to examine for visible intracardiac thrombus. No clot identified on this transthoracic exam. Left Ventricle Left ventricular chamber dimension is mildly enlarged. Left ventricular systolic function is mildly reduced, estimated at 40-45%. Right Ventricle Right ventricular chamber dimension is normal. Left Atria Left atrial chamber dimension is moderately enlarged. Right Atria Right atrial chamber dimension is normal. Aortic Valve The aortic valve is trileaflet. There is mild aortic valve sclerosis. Pulmonic Valve The pulmonic valve is not well visualized. Mitral Valve The mitral valve has normal leaflets and calcified annulus. There is mild mitral valve regurgitation. Tricuspid Valve The tricuspid valve leaflets are normal. Pericardium/Pleural The pericardium appears normal. Aorta The aortic root size at the sinus of Valsalva is normal. Report Signatures
[2019-06-16 05:24] LABS: Hematocrit 37.5 % (42.0-52.0); Mean Corpuscular HGB Conc 29.3 g/dl (32-36); Mean Corpuscular Hemoglobin 23.6 pg (26-34); Mean Corpuscular Volume 80.5 fl (80-100); Mean Platelet Volume 9.3 fl (7.4-10.4); Platelet Count Result 390 k/mm3 (150-375); Red Blood Count 4.66 M/mm3 (4.6-6.20); Red Cell Distribution Width 20.4 % (11.5-14.5); White Blood Count 9.5 K/mm3 (4.5-10.0)
[2019-06-16 06:05] LABS: Blood Urea Nitrogen 17 mg/dL (9-20); Calcium 8.5 mg/dL (8.4-10.2); Carbon Dioxide 23 mmol/L (22-30); Chloride 100 mmol/L (98-107); Estimated CRCL calculation 77 ml/min; Estimated Glomerular Filt Rate > 60; Glucose 92 mg/dL (75-110); Potassium 3.9 mmol/L (3.4-5.0); Sodium 133 mmol/L (137-145)
[2019-06-16] MEDS: PANTOPRAZOLE 40 MG TABLET PO (08:41)
[2019-06-16] MEDS: FERROUS SULFATE 324 MG TABLET PO (08:41)
[2019-06-16] MEDS: METOPROLOL TARTRATE 50 MG TAB PO ×2 (08:41→20:00)
--- NOTE | 2019-06-16 09:53 | PCOTNOTE ---
Attempted to see patient this AM, however, patient was sleeping upon arrival to room. Therapist attempted to wake patient, but patient was unable to maintain participation in conversation in order to attempt participation in therapy. Will attempt later this date to treat patient, or continue plan of care tomorrow, 06/17/2019.
--- NOTE | 2019-06-16 10:24 | PCPTNOTE ---
The PT treatment was unable to be completed this AM due to patient refusal. Will continue per Plan of Care frequency and duration.
--- NOTE | 2019-06-16 14:08 | PCOTNOTE ---
Attempted to see patient for third time this date, patient refused to participate in any functional activity or mobility task. Patient not seen for OT this date.
--- NOTE | 2019-06-16 14:52 | PM.IMPN ---
Progress Note: A&P Assessment and Plan (1) Acute CVA (cerebrovascular accident): Code(s): I63.9 - Cerebral infarction, unspecified Status: Acute Assessment and Plan: -----patient's MRI shows a large stroke in the areas of the right brain. He also has right carotid stenosis on ultrasound 50-69%. Patient is adamantly refusing is CTA and TALITA. I called [facility] stroke service 06/12 since he has had multiple strokes and now has this large stroke and they recommend CTA and TALITA. They also recommend holding aspirin, Plavix and not starting anticoagulants for at least a week. They recommend in 1 week from 06/11 to restart aspirin and add anticoagulation if he is appropriate. As stated above, Pt had a big GI bleed requiring 3 units of blood in [place], [place] and he got an EGD but declined a colonoscopy. Although his [id number] is 5, I think it would be too risky to start anticoagulation at this time and he could continue aspirin if wanted on aspirin. At this time will continue atorvastatin. This stroke is likely from atrial fibrillation but cannot exclude plaque component. The patient has very few deficits from this large stroke but speech is very slow. PT, ST and OT have been ordered but refused today. he did great with ST. I spoke with ramos today and plan is to go hospice once we find a medicaid pending bed. (2) Permanent atrial fibrillation: Code(s): I48.21 - Permanent atrial fibrillation Status: Chronic Assessment and Plan: ----- Continue metoprolol right now. He was seen by cardiology last month and they took him off digoxin and diltiazem. Will monitor his heart rate and adjust medications as needed but so far he is doing well. (3) Falls: Qualifiers: Encounter type: subsequent encounter Qualified Code(s): W19.XXXD - Unspecified fall, subsequent encounter Code(s): W19.XXXA - Unspecified fall, initial encounter Status: Acute Assessment and Plan: -----Continue PT and OT (4) Iron deficiency anemia: Code(s): D50.9 - Iron deficiency anemia, unspecified Status: Acute Assessment and Plan: -----oral iron started. Patient has a history of a GI bleed. Poor candidate for intervention at this time. No signs of acute bleed. (5) Cardiomyopathy: Qualifiers: Cardiomyopathy type: unspecified Qualified Code(s): I42.9 - Cardiomyopathy, unspecified Code(s): I42.9 - Cardiomyopathy, unspecified Status: Acute Assessment and Plan: -----seen during last stay. EF 40-45%. Continue metoprolol. Consider adding Jairo/Arb after allowing permissive hypertension. Awaiting new limited echo to see if there is a clot in the atrium. (6) Peripheral arterial disease: Code(s): I73.9 - Peripheral vascular disease, unspecified Status: Chronic Assessment and Plan: -----will hold aspirin and Plavix at this time due to above. He has a bypass but I am unsure about any actual stents. (7) Hypertension: Qualifiers: Hypertension type: essential hypertension Qualified Code(s): I10 - Essential (primary) hypertension Code(s): I10 - Essential (primary) hypertension Status: Chronic Assessment and Plan: -----last blood pressure 108/60. Continue metoprolol. Additional Plan Patient is being admitted as an inpatient status and supervising physician is Dr. Grace Brown Subjective Date/time seen: 06/16/19 14:52 Interval history: Pt is a 73-year-old male here for acute stroke. Patient was seen today and says he is doing okay with no complaints. He confirms that he does not want any more work up. I talked to his son, and NAKIAPatricia Ramos who says they are going to pursue hospice. Pt does not speak very much but I told him this and he says as long as I don't have to do anything . The son also says he has been in 3 different hospitals in 1 month. He had a GI bleed in [place] and needed
[2019-06-16] MEDS: ATORVASTATIN 40 MG TABLET PO (20:00)
[2019-06-16] MEDS: MELATONIN 3 MG TABLET PO (20:00)
[2019-06-17] VITALS (7 sets, daily range): BP systolic 97–125; BP diastolic 63–72; PULSE 81–109; RESP 18–20; TEMP 36.2–36.6; O2SAT 98–99
[2019-06-17] MEDS: METOPROLOL TARTRATE 50 MG TAB PO (08:29)
[2019-06-17] MEDS: PANTOPRAZOLE 40 MG TABLET PO (08:29)
[2019-06-17] MEDS: FERROUS SULFATE 324 MG TABLET PO (08:29)
--- NOTE | 2019-06-17 14:18 | PCPTNOTE ---
Attempted therapy session twice. Both times, Pt requested therapist to return tomorrow for therapy. Pt stated he was just too tired and had already gotten up earlier today. Reminded Pt the importance of working with therapy, Pt continued to decline treatment.
--- NOTE | 2019-06-17 20:42 | PM.DS ---
DS: Diagnosis Admitting Diagnosis Admitting Diagnosis: Iron deficiency anemia, unspecified Discharge Diagnosis (1) Acute CVA (cerebrovascular accident): Code(s): I63.9 - Cerebral infarction, unspecified Status: Acute Assessment and Plan: Date of Service 06/17/19 Mr. Domínguez is a 73yo M with history of atrial fibrillation, COPD, hypertension, and previous CVA who presented to the ER for evaluation after being found down at the senior living for an unknown amount of time. MRI brain showed right-sided CVA and right carotid stenosis was noted on imaging. Another provider contacted [facility] stroke team, who recommended CTA and TALITA. Patient declined further evaluation with CTA and TALITA. He was weak but able to stand with assistance, speech is low. He discharged with [facility]. -----Patient's MRI shows a large stroke in the areas of the right brain. He also has right carotid stenosis on ultrasound 50-69%. Patient is adamantly refusing is CTA and TALITA. Previous provider called [facility] stroke service 06/12 since he has had multiple strokes and now has this large stroke and they recommend CTA and TALITA. They also recommend holding aspirin, Plavix and not starting anticoagulants for at least a week. They recommend in 1 week from 06/11 to restart aspirin and add anticoagulation if he is appropriate. Pt recently had GI bleed requiring 3 units of blood in [place], [place] and he got an EGD but declined a colonoscopy. Although his [id number] is 5, it was felt he may be too risky to start anticoagulation at this time and he could continue aspirin if wanted on aspirin. At this time will continue atorvastatin. This stroke is likely from atrial fibrillation but cannot exclude plaque component. The patient has very few deficits from this large stroke but speech is very slow. PT, ST and OT have been ordered but patient was not interested in participating. Discharge on [facility]. (2) Permanent atrial fibrillation: Code(s): I48.21 - Permanent atrial fibrillation Status: Chronic Assessment and Plan: ----- Continue metoprolol right now. He was seen by cardiology last month and they took him off digoxin and diltiazem. (3) Falls: Qualifiers: Encounter type: subsequent encounter Qualified Code(s): W19.XXXD - Unspecified fall, subsequent encounter Code(s): W19.XXXA - Unspecified fall, initial encounter Status: Acute (4) Iron deficiency anemia: Code(s): D50.9 - Iron deficiency anemia, unspecified Status: Acute Assessment and Plan: ----- Oral iron started. Patient has a history of a GI bleed. Poor candidate for intervention at this time. No signs of acute bleed. (5) Cardiomyopathy: Qualifiers: Cardiomyopathy type: unspecified Qualified Code(s): I42.9 - Cardiomyopathy, unspecified Code(s): I42.9 - Cardiomyopathy, unspecified Status: Acute Assessment and Plan: ----- Seen during last stay. EF 40-45%. Continue metoprolol. (6) Peripheral arterial disease: Code(s): I73.9 - Peripheral vascular disease, unspecified Status: Chronic (7) Hypertension: Qualifiers: Hypertension type: essential hypertension Qualified Code(s): I10 - Essential (primary) hypertension Code(s): I10 - Essential (primary) hypertension Status: Chronic Assessment and Plan: Continue metoprolol. DS: Summary Time Spent with Patient Time attestation: Total time spent providing and/or coordinating discharge services: 35 minutes Exam Narrative: Exam Narrative: General:Well developed well nourished patient resting comfortably in bed in no acute distress HEENT: Normocephalic, atraumatic, PERRL, Sclerae anicteric, oral mucosa moist. Neck: Supple Resp: Clear to auscultation bilaterally. Heart: Irregularly irregular. Teleme
== END 2019-06-17 16:40 | disposition hospice, inpatient (51) | DRG 65 ==
LOC: ANHED 23:31 → ANH3MED 23:34
PROVIDERS: Physician Assistant; Admitting Provider Internal Medicine; Emergency Provider Emergency Medicine; Visit Provider Physician Assistant
DX: I63.231 Cerebral infarction due to unspecified occlusion or stenosis of right carotid arteries (principal); I48.21 Permanent atrial fibrillation; I42.9 Cardiomyopathy, unspecified; R41.82 Altered mental status, unspecified; I10 Essential (primary) hypertension; J44.9 Chronic obstructive pulmonary disease, unspecified; D50.9 Iron deficiency anemia, unspecified; I73.9 Peripheral vascular disease, unspecified; F17.210 Nicotine dependence, cigarettes, uncomplicated; W19.XXXA Unspecified fall, initial encounter; Z66 Do not resuscitate; Z86.73 Personal history of transient ischemic attack (TIA), and cerebral infarction without residual deficits
CPT/HCPCS: 36415; 51701; 70450; 70553; 71045; 72125; 72128; 72131; 73130; 73521; 80048; 80053; 81003; 82550; 84484; 85025; 85027; 85610; 85730; 92507; 92523; 92610; 93005; 93308; 96360; 97110; 97161; 97162; 97165; 97530; 99285; A9270; A9577; J7030